=== PATIENT | female | born 2000 | race Caucasian/White ===

== ENCOUNTER 2023-05-24 22:59 | Emergency (ER) | payer BC, SELFPAY ==
[2023-05-24 23:07] VITALS: BP 133/80; PULSE 120; RESP 22; TEMP 36.9; O2SAT 100; BMI 27.4
--- NOTE | 2023-05-24 23:14 | ED.GENADULT ---
HPI - General Adult General Date Seen: 05/24/23 Chief complaint: Nausea/Vomiting Stated complaint: Body aches, vomiting Time Seen by Provider: 05/24/23 23:09 Source: patient and family Mode of arrival: ambulatory Limitations: no limitations History of Present Illness HPI narrative: Patient is a 22-year-old here with mom for evaluation of vomiting and diarrhea which started this morning. She says the diarrhea started 1st and then she has had several episodes of vomiting. Diffuse crampy abdominal pain, no bloody stools, no fevers that she is aware of. No urinary symptoms. Her dad is sick with vomiting as well, mom says that he is up at [place] and they have not figured out what is wrong with him. General health is good, no abdominal surgeries. Related Data Home Medications Medication Instructions Recorded Confirmed epinephrine 0.3 mg/0.3 mL 0.3 ml IM PRN anaphylaxis 05/24/23 05/24/23 injection, auto-injector Allergies Allergy/AdvReac Type Severity Reaction Status Date / Time amoxicillin Allergy Mild Rash Verified 05/24/23 23:09 Penicillins Allergy Mild Hives Verified 05/24/23 23:09 Review of Systems Status of ROS: Reports: 10 or more systems reviewed and unremarkable except as noted in History and below [facility] Medical History No significant past medical history Surgical History No significant past surgical history Social History Smoking Status: Never smoker Second hand tobacco smoke exposure: No How often do you have a drink containing alcohol: never AUDIT-C Alcohol total score: 0 Non-prescribed substance use: denies use Exam Narrative: Exam Narrative: Vital signs as noted above. In general, an alert, well-appearing patient. Head: Normocephalic, atraumatic. Eyes: Pupils are equal reactive. Extraocular movements are full. Conjunctivae are normal. ENT: Mucous membranes are moist. Throat is normal. Neck: Supple without lymphadenopathy. Heart: Regular rate and rhythm. No murmur or rub. Lungs: Clear bilaterally. No increased work of breathing, crackles or wheezes. Abdomen: Soft and nondistended. Bowel sounds present. Mild diffuse tenderness without rebound guarding or rigidity. Extremities: Well perfused. No edema. No calf tenderness. Pulses intact. Neurologic: Patient is alert and oriented to person and place. Speech is fluent. Face is symmetric. Moves all extremities equally. Affect: Normal. Skin: Warm and dry. Well perfused. Const: Vital Signs, click to edit/add: Vital Signs - 24 hr 05/24/23 23:07 Temperature 98.5 F Pulse Rate [Right Pulse Oximeter] 120 H Respiratory Rate 22 Blood Pressure [Ri ght Upper Arm] 133/80 Pulse Oximetry 100 Oxygen Delivery Me thod Room Air Documenting provider has reviewed patient's vital signs: yes Course Course ED Course: Viral swab is pending. Will place an IV give some fluids and Zofran, check electrolytes, UA, test. Diagnostic considerations include gastroenteritis, food-borne illness, rule out dehydration, low suspicion of surgical process such as appendicitis, ovarian pathology, obstruction given presentation and exam. Labs are notable for a potassium of 3, she was given 50 mEq of potassium bicarb. She had a L normal saline, Zofran, has not had any further vomiting, stomach feels somewhat better. No diarrhea while here. Urinalysis shows trace blood, 2-5 red cells, 2-5 white cells. test is negative. COVID influenza and RSV are negative as well. Discussed with patient and her mom that symptoms are most likely viral although she is significantly worsening, has severe abdominal pain, fevers, unusual rashes, bloody stools or other worsening symptoms she should be re-evaluated. Otherwise, would anticipate that the vomiting should resolve over the next day or so. Diarrhea may persist but she should be seen if she has diarrhea beyond 10 days. Clear liquids tomorrow, advance as able. Zofran if needed at home for nausea or vomiting. Hypokalemia likely from GI losses, expect that this will improve with resolution of symptoms but could be rechecked in clinic next week. Vital Signs Vital signs: Initial Vital Signs Temperature 98.5 F 05/24/23 23:07 Temperature Source Temporal Artery Scan 05/24/23 23:07 Pulse Rate 120 H 05/24/23 23:07 Respiratory Rate 22 05/24/23 23:07 Blood Pressure 133/80 05/24/23 23:07 Blood Pressure Mean 97 05/24/23 23:07 Blood Pressure Position Sitting 05/24/23 23:07 Pulse Oximetry 100 05/24/23 23:07 Oxygen Delivery Method Room Air 05/24/23 23:07 Vital Signs Temperature 98.5 F 05/24/23 23:07 Pulse Rate 120 H 05/24/23 23:07 Respiratory Rate 22 05/24/23 23:07 Blood Pressure 133/80 05/24/23 23:07 Pulse Oximetry 100 05/24/23 23:07 Oxygen Delivery Method Room Air 05/24/23 23:07 Temperature 98.5 F 05/24/23 23:07 Pulse Rate 120 H 05/24/23 23:07 Respiratory Rate 22 05/24/23 23:07 Blood Pressure 133/80 05/24/23 23:07 Pulse Oximetry 100 05/24/23 23:07 Oxygen Delivery Method Room Air 05/24/23 23:07 Medications Administered Medications: Generic Name Dose Route Start Last Admin Trade Name Freq PRN Reason Stop Dose Admin Potassium Bicarbonate 50 meq 05/25/23 00:00 05/25/23 00:02 Potassium Bicarb 25 Meq Effervescent Tab PO 05/25/23 00:01 50 meq ONCE ONE Administration Discontinued Medications Generic Name Dose Route Start Last Admin Trade Name Freq PRN Reason Stop Dose Admin Sodium Chloride 1,000 mls @ 1,000 mls/hr 05/24/23 23:15 05/25/23 00:02 0.9 % Sodium Chloride 1000 Ml IV 05/25/23 00:14 Infused .Q1H TERESE Infusion Ondansetron HCl 4 mg 05/24/23 23:13 05/24/23 23:20 Ondansetron 2 Mg/Ml Inj IVP 05/24/23 23:14 4 mg ONCE ONE Administration Medical Decision Making Lab Data Labs: Lab Results 05/24/23 05/24/23 05/24/23 Range/Units 23:08 23:13 23:20 Sodium 135 (135-149) mmol/L Potassium 3.0 L (3.6-5.1) mmol/L Chloride 103 (96-114) mmol/L Carbon Dioxide 22 (20-32) mmol/L Anion Gap 10 (7-15) mEq/L BUN 8 (5-24) mg/dL Creatinine 0.5 (0.5-1.5) mg/dL Estimated Creat Clear 181.05 Estimated GFR 138 ml/min Glucose 119 H (60-115) mg/dL Calcium 9.2 (8.4-10.6) mg/dL Urine Color Yellow (Yellow) Urine Appearance Clear (Clear) Urine pH 6.0 (5.0-8.5) Ur Specific [place] 1.015 (1.000-1.030) Urine Protein Negative (Negative) Urine Glucose (UA) Negative (Negative) Urine Ketones Negative (Negative) Urine Blood Trace-intact A (Negative) Urine Nitrite Negative (Negative) Urine Bilirubin Negative (Negative) Urine Urobilinogen 0.2 (0.2-1.0) Ur Leukocyte Esterase 1+ A (Negative) Urine RBC 2-5 A (0-2) Urine WBC 2-5 (0-5) Ur Squamous Epith Cells Few (None-Few) Urine Bacteria Few A (None) Urine HCG, Qual Negative (Negative) SARS-CoV-2 (PCR) Negative SARS-CoV-2 (Negative) Influenza Type A (PCR) Negative PCR FLU A (Negative) Influenza Type B (PCR) Negative PCR FLU B (Negative) RSV (PCR) Negative PCR RSV (Negative) Discharge Plan Discharge Clinical Impression: Nausea, vomiting and diarrhea Patient Disposition: Home w/ Parent or Adult Condition: Improved Instructions: Acute Nausea and Vomiting (DC), Acute Diarrhea (ED) Additional Instructions: Symptoms are likely viral and will gradually improve over the next 24 hours. Diarrhea may persist for up to a week, if you continue have diarrhea for more than 10 days you should be seen in your clinic. If at any time you have severe symptoms, new symptoms such as bloody stools, unusual rashes, high fevers, return to the emergency department for further evaluation. Zofran if needed for nausea/vomiting, I would recommend clear liquids tomorrow, advance diet as your stomach allows. Your potassium was somewhat low here which is likely related to losses from vomiting and diarrhea. This can be rechecked in clinic next week. Prescriptions: No Action epinephrine 0.3 mg/0.3 mL auto-injector 0.3 ml IM PRN Follow Up/Referrals: Giovany Bazzi MD [Staff Physician] - Stand Alone Forms: [employer] Info Instructions
[2023-05-24] MEDS: 0.9 % SODIUM CHLORIDE 1000 ml 1,000 ML IV (23:20)
[2023-05-24] MEDS: ONDANSETRON 2 MG/ML inj 4 MG IVP (23:20)
[2023-05-24 23:51] LABS: PCR FLU A Negative PCR FLU A (Negative); PCR FLU B Negative PCR FLU B (Negative); PCR RSV Negative PCR RSV (Negative); SARS PCR* Negative SARS-CoV-2 (Negative)
[2023-05-24 23:56] LABS: Chloride* 103 mmol/L (96-114); Sodium* 135 mmol/L (135-149)
[2023-05-24 23:59] LABS: Anion Gap 10 mEq/L (7-15); Carbon Dioxide* 22 mmol/L (20-32); Creatinine* 0.5 mg/dL (0.5-1.5); Est. Creatinine Clearance* 181.05; Estimated Glomerular Filt Rate 138 ml/min
[2023-05-25] LABS: Blood Urea Nitrogen* 8 mg/dL (5-24); Calcium* 9.2 mg/dL (8.4-10.6); Glucose* 119 mg/dL (60-115)
[2023-05-25] MEDS: POTASSIUM BICARB 25 MEQ EFFERVESCENT TAB 50 MEQ PO (00:02)
[2023-05-25 00:05] LABS: Appearance Urine Clear (Clear); Bilirubin Urine Negative (Negative); Blood Urine Trace-intact (Negative); Color Urine Yellow (Yellow); Glucose Urine Negative (Negative); Ketones Urine Negative (Negative); Leukocyte Esterase Urine 1+ (Negative); Nitrite Urine Negative (Negative); Protein Urine Negative (Negative); Specific Gravity Urine 1.015 (1.000-1.030); Ur HCG Qualitative* Negative (Negative); Urobilinogen Urine 0.2 (0.2-1.0)
[2023-05-25 00:23] LABS: Bacteria Urine Few; Squamous Epithelial Cell Urine Few (None-Few)
[2023-05-25 00:30] VITALS: BP 125/74; PULSE 98; RESP 22; TEMP 36.9; O2SAT 100
[2023-05-25 00:40] VITALS: BP 125/74; PULSE 98; RESP 22; TEMP 36.9
== END 2023-05-25 00:41 | disposition home or self-care (01) ==
PROVIDERS: Emergency Provider Emergency Medicine; PCP Family Medicine
DX: R11.2 Nausea with vomiting, unspecified (principal); R19.7 Diarrhea, unspecified
CPT/HCPCS: 36415; 80048; 81001; 81025; 87086; 87631; 96374; 99283; 99284; A9270; J2405; J7030

== ENCOUNTER 2023-07-08 08:31 | Outpatient (CLI) | payer MEDICAID, SELFPAY ==
--- NOTE | 2023-07-08 08:45 | US_ITS ---
Patient: RUY JACKSON Facility:?[facility] Patient ID:?[id number] Site Patient ID:?[id number]. Site :?[id number] Study:?US-OB Pelvis OB TV-07/08/2023 9:41:58 AM Ordering Physician:ED TURCIOS Final Report: INDICATION: Dating and viability. LMP 05/09/2023. COMPARISON: None. TECHNIQUE: Real-time pike-scale imaging of the pelvis was performed. FINDINGS: Sonographic imaging demonstrates a single living intrauterine gestation. The embryo has a regular cardiac rate measuring 186 beats per minute. The embryo`s crown-rump length measures 2.8 cm which corresponds to a gestational age of 9 weeks 4 days with sonographic due date 02/06/2024. There is a normal-appearing yolk sac. The placenta has not yet developed. There is a 2.1 x 0.2 x 2.7 cm subchorionic hemorrhage inferior to the gestational sac. The right ovary measures 3.7 x 2.4 x 2.9 cm and the left ovary measures 2.1 x 1.3 x 1.3 cm. Corpus luteal cyst in the right ovary. No free fluid in the pelvic cul-de-sac. IMPRESSION: 1. Single living intrauterine gestation corresponding to a gestational age of 9 weeks 4 days with sonographic due date 02/06/2024. 2. The clinical gestational age by LMP is 9 weeks 0 days. 3. Small subchorionic hemorrhage. Dictated by Sondra Hassan MD @ 07/09/2023 3:03:33 AM Signed by:?Sondra Hassan MD @07/09/2023 3:03:33 AM (Electronic Signature)
== END 2023-07-08 08:32 | disposition home or self-care (01) ==
LOC: US 08:33
PROVIDERS: PCP Family Medicine; Visit Provider Physician Assistant
DX: Z34.91 Encounter for supervision of normal pregnancy, unspecified, first trimester (principal); O20.9 Hemorrhage in early pregnancy, unspecified; Z3A.09 9 weeks gestation of pregnancy
CPT/HCPCS: 76817; 86703; 86706; 86803; 86850; 86900; 86901; 87086; 87340; 87491; 87591

== ENCOUNTER 2023-07-08 09:49 | Outpatient (CLI) | payer MEDICAID, SELFPAY ==
[2023-07-08 15:11] LABS: Chlamydia DNA Amplified* NOT DETECTED (No Detected); GC DNA Amplified* NOT DETECTED (No Detected)
== END 2023-07-08 09:50 | disposition home or self-care (01) ==
PROVIDERS: PCP Family Medicine; Visit Provider Obstetrics & Gynecology
DX: Z34.01 Encounter for supervision of normal first pregnancy, first trimester (principal)
CPT/HCPCS: 86592; 86703; 86704; 86706; 86762; 86787; 86803; 86850; 86900; 86901; 87086; 87340; 87491; 87591

== ENCOUNTER 2023-07-22 23:20 | Emergency (ER) | payer MEDICAID, SELFPAY ==
[2023-07-22 23:35] VITALS: BP 123/85; PULSE 101; RESP 20; TEMP 36.5; O2SAT 100; BMI 26.6
--- NOTE | 2023-07-23 00:33 | ED.NAVMDI ---
HPI - Nausea/Vomiting/Diarrhea General Date Seen: 07/23/23 Chief complaint: Nausea/Vomiting Stated complaint: Nausea, vomiting Time Seen by Provider: 07/23/23 00:10 Source: patient Mode of arrival: ambulatory Limitations: no limitations History of Present Illness HPI Narrative: Patient is a currently 11 weeks 22-year-old female presenting to the emergency department for nausea/vomiting and epigastric pain. She states today around 19:30 she started having severe nausea and vomiting. Since then she states she has vomited several times and has not been able to eat or drink anything due to this. Last time she was able to keep any food or liquids down was around noon for lunch. She states she has been his knee issues with nausea for few weeks but has never been this bad. Does not take anything for nausea. States the abdominal pain started shortly after she started vomiting and is just in the upper abdominal region. Denies chest pain, shortness of breath, lightheadedness, dizziness, , weakness, numbness. States when she is vomiting she becomes sweaty and then she feels cold afterwards. Does not aware of any sick contacts. Has had no complications with the other than was told she has a very small subchorionic hemorrhage. No other concerns at this time. Related Data Home Medications Medication Instructions Recorded Confirmed epinephrine 0.3 mg/0.3 mL 0.3 ml IM PRN anaphylaxis 05/24/23 05/24/23 injection, auto-injector docosahexaenoic acid 200 mg mg PO 07/08/23 07/08/23 capsule ( DHA) Previous Rx's Medication Instructions Recorded ondansetron 4 mg disintegrating 4 mg PO Q6H #20 tabs 07/23/23 tablet Allergies Allergy/AdvReac Type Severity Reaction Status Date / Time Peanut (Legumes) Allergy Severe Swelling Verified 07/22/23 23:38 amoxicillin Allergy Intermediate Hives Verified 07/22/23 23:38 Penicillins Allergy Intermediate Hives Verified 07/22/23 23:38 penicillin V Allergy Mild Rash Verified 07/22/23 23:38 Review of Systems Status of ROS: Reports: 10 or more systems reviewed and unremarkable except as noted in History and below [facility] Surgical History History of tonsillectomy and adenoidectomy ?Z90.89 - Acquired absence of other organs (ICD-10) Family History Father High cholesterol High blood pressure Social History What is your current living situation?: I presently have a place to live Problems where you live: no known problems In the past 12 months, utilities in danger of being shut off: no In past 12 months, lack of transportation kept you from medical appts, meetings, work, or getting things needed for daily living: no In the past 12 mos, have been you worried that your food would run out before you had money to buy more?: never true In the past 12 mos, the food you bought just didn't last and you didn't have money to buy more?: never true Smoking Status: Never smoker Second hand tobacco smoke exposure: No How often do you have a drink containing alcohol: never AUDIT-C Alcohol total score: 0 Non-prescribed substance use: denies use How often does anyone, including family, friends and others, physically hurt you: never How often does anyone, including family, friends and others, insult or talk down to you: never How often does anyone, including family, friends and others, threaten you with harm: never How often does anyone, including family, friends and others, scream or curse at you: never Little interest or pleasure in doing things: not at all Feeling down, depressed, or hopeless: not at all Exam Narrative: Exam Narrative: Const: Well-nourished, Well-developed, in mild distress Eyes: PERRL, no conjunctival injection, and symmetrical lids HENT: Atraumatic external nose and ears. Moist mucous membranes. Neck: Symmetric, trachea midline, No thyromegaly. CVS: RRR, No murmurs or gallops. Peripheral pulses 2+ and equal in all extremities RESP: Unlabored respiratory effort. Clear to auscultation bilaterally. GI: Mild epigastric tenderness, Nondistended, No rebound or guarding. MSK:Extremities w/o deformity, Normal Active ROM Skin: Warm, Dry. No rashes or lesions. Neuro: Normal Muscle tone, No focal neurological deficits. Psych: Awake, Alert, & Oriented x3. Appropriate mood and affect. Const: Vital Signs, click to edit/add: Vital Signs - 24 hr 07/22/23 23:35 Temperature 97.7 F Pulse Rate [Pulse Oximeter] 101 H Respiratory Rate 20 Blood Pressure [Ri ght Upper Arm] 123/85 Pulse Oximetry 100 Oxygen Delivery Me thod Room Air Course Vital Signs Vital signs: Initial Vital Signs Temperature 97.7 F 07/22/23 23:35 Temperature Source Temporal Artery Scan 07/22/23 23:35 Pulse Rate 101 H 07/22/23 23:35 Pulse Rhythm Regular 07/22/23 23:35 Pulse Strength 3+ Normal 07/22/23 23:35 Respiratory Rate 20 07/22/23 23:35 Blood Pressure 123/85 07/22/23 23:35 Blood Pressure Mean 97 07/22/23 23:35 Pulse Oximetry 100 07/22/23 23:35 Oxygen Delivery Method Room Air 07/22/23 23:35 Vital Signs Temperature 97.7 F 07/22/23 23:35 Pulse Rate 101 H 07/22/23 23:35 Respiratory Rate 20 07/22/23 23:35 Blood Pressure 123/85 07/22/23 23:35 Pulse Oximetry 100 07/22/23 23:35 Oxygen Delivery Method Room Air 07/22/23 23:35 Temperature 97.7 F 07/22/23 23:35 Pulse Rate 101 H 07/22/23 23:35 Respiratory Rate 20 07/22/23 23:35 Blood Pressure 123/85 07/22/23 23:35 Pulse Oximetry 100 07/22/23 23:35 Oxygen Delivery Method Room Air 07/22/23 23:35 Medications Administered Medications: Discontinued Medications Generic Name Dose Route Start Last Admin Trade Name Freq PRN Reason Stop Dose Admin Lactated Ringer's 1,000 mls @ 1,000 mls/hr 07/23/23 00:31 07/23/23 01:06 Lactated Ringers 1000 Ml IV 07/23/23 01:30 1,000 mls/hr .Q1H ONE Administration Ondansetron HCl 4 mg 07/23/23 00:31 07/23/23 01:07 Ondansetron 2 Mg/Ml Inj IVP 07/23/23 00:32 4 mg ONCE ONE Administration MDM - Nausea/Vomiting/Diarrhea MDM Narrative Medical decision making narrative: Patient is a 22-year-old female who is 11 weeks and this is her 1st presenting to emergency department for nausea/vomiting and upper abdominal pain. Considering the time frame of the nausea vomiting seems to be hyperemesis gravidarum. The abdominal pain is epigastric in started right after vomiting is likely secondary to the vomiting. Will check a lipase though to look for signs of pancreatitis. Will also order a CBC, CMP, COVID/flu/RSV, magnesium, urinalysis, quantitative hCG. Patient given Zofran for nausea and a L of fluids. Patient's lab work returned with a CBC showed a white count of 14.4. She is showing other signs of infection this is likely secondary to the patient's vomiting. She is also which can increase the white blood cell count. CMP and magnesium showed no concerning findings. Lipase within normal limits and no signs of pancreatitis. Urinalysis shows 4+ ketones which is sign of dehydration from her vomiting. She has order being given a L of fluid and no other signs of abnormalities. Go chest flu/RSV is negative. She is feeling better after the Zofran. At this point she is doing will it can be safely discharged who appeared. She is agreeable to this plan. Lab Data Labs: Lab Results 07/23/23 07/23/23 07/23/23 Range/Units 01:08 01:25 01:50 WBC 14.40 H (4.50-11.00) K/uL RBC 4.76 (4.00-5.20) m/uL Hgb 12.8 (12.0-16.0) gm/dL Hct 38.3 (33.0-51.0) % MCV 81 (80-100) fL MCH 27 (26-34) pg MCHC 33 (32-36) gm/dL RDW Coeff of Chela 13.6 (11.5-15.5) % Plt Count 189 (140-440) K/uL Neut % (Auto) 90.7 H (42.0-72.0) % Lymph % (Auto) 5.1 L (20-44) % Dundy % (Auto) 3.5 (0.0-11.0) % Eos % (Auto) 0.3 (0.0-7.0) % Baso % (Auto) 0.1 (0.0-3.0) % Neut # (Auto) 13.10 H (1.7-7.0) K/uL Lymph # (Auto) 0.70 L (0.90-2.90) K/uL Dundy # (Auto) 0.50 (0.00-0.90) K/UL Eos # (Auto) 0.00 (0.00-0.50) K/uL Baso # (Auto) 0.00 (0.00-0.30) K/uL Abs Immat Gran (auto) 0.00 (0.00-0.30) K/uL Imm/Tot Granulo (auto) 0.3 % Sodium 135 (135-149) mmol/L Potassium 3.7 (3.6-5.1) mmol/L Chloride 105 (96-114) mmol/L Carbon Dioxide 24 (20-32) mmol/L Anion Gap 6 L (7-15) mEq/L BUN 9 (5-24) mg/dL Creatinine 0.3 L (0.5-1.5) mg/dL Estimated Creat Clear 301.75 Estimated GFR 156 ml/min Glucose 109 (60-115) mg/dL Calcium 9.2 (8.4-10.6) mg/dL Magnesium 1.7 (1.5-2.6) mg/dL Total Bilirubin 0.7 (0.1-1.5) mg/dL AST 25 (12-35) U/L ALT 17 (4-35) U/L Alkaline Phosphatase 49 (40-150) U/L Total Protein 7.4 (6.0-8.3) g/dL Albumin 4.2 (3.3-5.0) g/dL Lipase 68 (23-300) U/L Urine Color Yellow (Yellow) Urine Appearance Clear (Clear) Urine pH 6.0 (5.0-8.5) Ur Specific [place] >= 1.030 (1.000-1.030) Urine Protein Negative (Negative) Urine Glucose (UA) Negative (Negative) Urine Ketones 4+ A (Negative) Urine Blood Negative (Negative) Urine Nitrite Negative (Negative) Urine Bilirubin Negative (Negative) Urine Urobilinogen 0.2 (0.2-1.0) Ur Leukocyte Esterase Negative (Negative) Urine RBC 0-2 (0-2) Urine WBC 0-2 (0-5) Ur Squamous Epith Cells Few (None-Few) Urine Bacteria Few A (None) SARS-CoV-2 (PCR) Negative SARS-CoV-2 (Negative) Influenza Type A (PCR) Negative PCR FLU A (Negative) Influenza Type B (PCR) Negative PCR FLU B (Negative) RSV (PCR) Negative PCR RSV (Negative) Discharge Plan Discharge Clinical Impression: Nausea Patient Disposition: Home, Self-Care Condition: Stable Instructions: Hyperemesis Gravidarum (ED) Additional Instructions: Use the Zofran as needed for nausea. Make sure to follow-up with the [facility] to speak to them about your symptoms. They may have you started on different nausea medicine. Return to emergency department for new or worsening symptoms. Prescriptions: New ondansetron 4 mg tablet,disintegrating 4 mg PO Q6H Qty: 20 0RF No Action DHA 200 mg capsule PO epinephrine 0.3 mg/0.3 mL auto-injector 0.3 ml IM PRN Follow Up/Referrals: Kaitlin Ashton MD [Primary Care Provider] - Stand Alone Forms: [employer] Info Instructions
[2023-07-23] MEDS: LACTATED RINGERS 1000 ML 1,000 ML IV (01:06)
[2023-07-23] MEDS: ONDANSETRON 2 MG/ML inj 4 MG IVP (01:07)
[2023-07-23 01:30] LABS: Basophils Percent Auto 0.1 % (0.0-3.0); Eosinophils Percent Auto 0.3 % (0.0-7.0); Hematocrit 38.3 % (33.0-51.0); Hemoglobin* 12.8 gm/dL (12.0-16.0); Immature Granulocytes Pct Auto 0.3 %; Lymphocytes Percent Auto 5.1 % (20-44); Mean Corpuscular HGB Conc 33 gm/dL (32-36); Mean Corpuscular Hemoglobin 27 pg (26-34); Mean Corpuscular Volume 81 fL (80-100); Monocytes Percent Auto 3.5 % (0.0-11.0); Neutrophils Percent Auto 90.7 % (42.0-72.0); Platelet Count* 189 K/uL (140-440); RDW Coefficient of Variation % 13.6 % (11.5-15.5); Red Blood Count 4.76 m/uL (4.00-5.20)
[2023-07-23 01:34] LABS: Slide Review Reflex No
[2023-07-23 01:43] LABS: Albumin* 4.2 g/dL (3.3-5.0); Chloride* 105 mmol/L (96-114); Sodium* 135 mmol/L (135-149)
[2023-07-23 01:44] LABS: Potassium* 3.7 mmol/L (3.6-5.1)
[2023-07-23 01:46] LABS: Alkaline Phosphatase* 49 U/L (40-150); Anion Gap 6 mEq/L (7-15); Aspartate Amino Transferase* 25 U/L (12-35); Bilirubin Total* 0.7 mg/dL (0.1-1.5); Blood Urea Nitrogen* 9 mg/dL (5-24); Carbon Dioxide* 24 mmol/L (20-32); Creatinine* 0.3 mg/dL (0.5-1.5); Est. Creatinine Clearance* 301.75; Estimated Glomerular Filt Rate 156 ml/min; Glucose* 109 mg/dL (60-115); Lipase* 68 U/L (23-300); Total Protein* 7.4 g/dL (6.0-8.3)
[2023-07-23 01:47] LABS: Alanine Aminotransferase* 17 U/L (4-35); Calcium* 9.2 mg/dL (8.4-10.6); Magnesium* 1.7 mg/dL (1.5-2.6)
[2023-07-23 01:57] LABS: Appearance Urine Clear (Clear); Bilirubin Urine Negative (Negative); Blood Urine Negative (Negative); Color Urine Yellow (Yellow); Glucose Urine Negative (Negative); Ketones Urine 4+ (Negative); Leukocyte Esterase Urine Negative (Negative); Nitrite Urine Negative (Negative); Protein Urine Negative (Negative); Specific Gravity Urine >= 1.030 (1.000-1.030); Urobilinogen Urine 0.2 (0.2-1.0)
[2023-07-23 02:01] LABS: RBC Urine 0-2 (0-2); Squamous Epithelial Cell Urine Few (None-Few); WBC Urine 0-2 (0-5)
[2023-07-23 02:02] LABS: Bacteria Urine Few
[2023-07-23 02:07] LABS: PCR FLU A Negative PCR FLU A (Negative); PCR FLU B Negative PCR FLU B (Negative); PCR RSV Negative PCR RSV (Negative); SARS PCR* Negative SARS-CoV-2 (Negative)
== END 2023-07-23 02:41 | disposition home or self-care (01) ==
PROVIDERS: Emergency Provider Student in an Organized Health Care Education/Training Program; PCP Family Medicine
DX: N39.0 Urinary tract infection, site not specified (principal); Z22.359 Carrier of Enterobacterales, unspecified
CPT/HCPCS: 36415; 80053; 81001; 83690; 83735; 84702; 85025; 87086; 87186; 87631; 96374; 99283; 99284; J2405; J7120

== ENCOUNTER 2023-09-24 07:11 | Outpatient (CLI) | payer MEDICAID, SELFPAY ==
--- NOTE | 2023-09-24 07:15 | CRLHL7_ITS ---
For Patients: As a result of the Century Cures Act, medical imaging exams and procedure reports are released immediately into your electronic medical record. You may view this report before your referring provider. If you have questions, please contact your health care provider. OBSTETRICAL ULTRASOUND ??? ANATOMY SURVEY INDICATION: Supervision of normal first . anatomy scan. LMP: 05/06/2023. YAMILET by LMP: 02/10/2024. GA: 20w 1d. COMPARISON: 07/08/2023. TECHNIQUE: Transabdominal pelvic ultrasound. FINDINGS: position: Vertex. Cervix: Visualized. Length of closed cervix: 3.6 cm. Placenta position: Posterior. Placenta tip to internal os: 7.1 cm. Umbilical cord: 3-vessel cord. Placental insertion: Central. Amniotic fluid: 3.4 cm SDP ANATOMY SURVEY: Observed Structures Cerebellum: 2.0 cm, 20 weeks 3 days Cisterna magna: 5.1 mm Nuchal fold: 4.6 mm Lateral ventricle: 4.7 mm CSP Midline falx Choroid plexus Spine Stomach Abdominal cord insert Urinary bladder Kidneys Diaphragm Nose/lips Orbital view Profile Upper extremities Lower extremities Hands Feet 4-chamber heart LVOT RVOT 3VV 3VTV Biometry: BPD: 4.4 cm, 19 weeks 3 days, 21% HC: 17.5 cm, 20 weeks 0 days, 37% AC: 15.7 cm, 20 weeks 6 days, 69% FL: 3.5 cm, 21 weeks 1 days, 76% FL/AC: 22.4% HC/AC ratio: 1.11 heart rate: 142 bpm age by this ultrasound: 20 weeks 3 days YAMILET by this ultrasound: 02/08/2024 Estimated weight: 380.28 grams (13 ounces) Percentile by YAMILET: 82% IMPRESSION: 1. Measurements are consistent with dates. 2. Normal anatomic survey. Filiberto Longoria M.D. Body/Diagnostic Radiologist [email or web address] SP/Dictated by: Filiberto Longoria MD @ 09/24/2023 2:53:00 PM (Electronically Signed)
== END 2023-09-24 07:12 | disposition home or self-care (01) ==
LOC: US 07:12
PROVIDERS: Visit Provider Obstetrics & Gynecology
DX: Z34.92 Encounter for supervision of normal pregnancy, unspecified, second trimester (principal); Z3A.20 20 weeks gestation of pregnancy
CPT/HCPCS: 76805

== ENCOUNTER 2023-10-06 12:52 | Emergency (ER) | payer MEDICAID, SELFPAY ==
[2023-10-06] VITALS (13 sets, daily range): BP systolic 124–137; BP diastolic 71–83; PULSE 68–108; RESP 20; TEMP 36.6; O2SAT 97–100; BMI 25.8
--- NOTE | 2023-10-06 13:00 | ED_ITS ---
HPI - General Adult General Time Seen by Provider: 13:00 Date Seen: 10/06/23 Chief complaint: Allergic Reaction Stated complaint: Allergic reaction peanuts Time Seen by Provider: 10/06/23 12:54 Source: patient and RN notes reviewed Mode of arrival: ambulatory Limitations: no limitations History of Present Illness HPI narrative: Patient was seen on arrival and did follow her in to her patient care room. She ingested peanuts about an hour and half ago, this was inadvertent food cross contamination. She took oral Benadryl immediately. She is about 22 weeks pregn ant, did not want to take her EpiPen. She felt facial itchiness, lip and mouth itchiness, breathing feels heavy, feels nauseated but has not thrown up. She did not ever noted a rash. She is not sure the last time she ingested peanuts or what her last reaction was as it has been so long. Related Data Home Medications ?Medication ?Instructions ?Recorded ?Confirmed epinephrine 0.3 mg/0.3 mL 0.3 ml IM PRN anaphylaxis 05/24/23 09/24/23 injection, auto-injector docosahexaenoic acid 200 mg mg PO 07/08/23 09/24/23 capsule ( DHA) Previous Rx's ?Medication ?Instructions ?Recorded famotidine 10 mg tablet (Acid 10 mg PO BID #60 tabs 07/25/[address] (famotidine)) prednisone 20 mg tablet 20 mg PO BID #6 tabs 10/06/23 Allergies Allergy/AdvReac Type Severity Reaction Status Date / Time Peanut (Legumes) Allergy Severe Swelling Verified 09/24/23 07:30 amoxicillin Allergy Intermediate Hives Verified 09/24/23 07:30 Penicillins Allergy Intermediate Hives Verified 09/24/23 07:30 penicillin V Allergy Mild Rash Verified 09/24/23 07:30 Review of Systems Status of ROS: Reports: 6 or more systems reviewed and unremarkable except as noted in History and below [facility] Surgical History History of tonsillectomy and adenoidectomy ?Z90.89 - Acquired absence of other organs (ICD-10) Family History Father High cholesterol High blood pressure Social History What is your current living situation?: I presently have a place to live Problems where you live: no known problems In the past 12 months, utilities in danger of being shut off: no In past 12 months, lack of transportation kept you from medical appts, meetings, work, or getting things needed for daily living: no In the past 12 mos, have been you worried that your food would run out before you had money to buy more?: never true In the past 12 mos, the food you bought just didn't last and you didn't have money to buy more?: never true Smoking Status: Never smoker Do you use any of these nicotine containing products: None Second hand tobacco smoke exposure: No How often do you have a drink containing alcohol: never AUDIT-C Alcohol total score: 0 Non-prescribed substance use: denies use How often does anyone, including family, friends and others, physically hurt you : never How often does anyone, including family, friends and others, insult or talk down to you: never How often does anyone, including family, friends and others, threaten you with harm: never How often does anyone, including family, friends and others, scream or curse at you: never Little interest or pleasure in doing things: not at all Feeling down, depressed, or hopeless: not at all service: No Exam Const: Vital Signs, click to edit/add: Vital Signs - 24 hr 10/06/23 13:00 10/06/23 13:27 10/06/23 13:30 Temperature 97.9 F Pulse Rate 70 81 Pulse Rate [Pulse Oximeter] 79 Respiratory Rate 20 Blood Pressure Blood Pressure [Le ft Upper Arm] 137/83 Pulse Oximetry 100 98 98 Oxygen Delivery Me thod Room Air 10/06/23 14:00 10/06/23 14:09 10/06/23 14:30 Temperature Pulse Rate 68 76 Pulse Rate [Pulse Oximeter] Respiratory Rate Blood Pressure Blood Pressure [Le ft Upper Arm] Pulse Oximetry 97 98 99 Oxygen Delivery Me thod 10/06/23 15:00 10/06/23 15:30 10/06/23 16:01 Temperature Pulse Rate 78 69 75 Pulse Rate [Pulse Oximeter] Respiratory Rate Blood Pressure Blood Pressure [Le ft Upper Arm] Pulse Oximetry 97 98 99 Oxygen Delivery Me thod 10/06/23 16:11 10/06/23 16:31 Temperature Pulse Rate 75 108 H Pulse Rate [Pulse Oximeter] Respiratory Rate Blood Pressure 124/71 Blood Pressure [Le ft Upper Arm] Pulse Oximetry 100 99 Oxygen Delivery Me thod This 23-year-old female is alert, interactive, ambulatory back into her room with normal gait. Her speech is normal, no hoarseness, able speak in complete sentences. Face is normal, no rash, no lip swelling. Sclera clear, conjugate gaze. Oropharynx with normal mucosa, no exudates, no swelling, tongue looks normal, uvula and posterior pharynx looks normal, she has a good oral airway. Neck is supple, no adenopathy. Lungs are clear, good air entry, no wheezing or crackles, good breath sounds, no tachypnea. CV regular rate and rhythm, no murmur, normal S1-S2, no S3-S4. Abdomen is soft, nontender, gravid uterus but no tenderness. No other organomegaly noted. Skin visualized without any rash or hives. Documenting provider has reviewed patient's vital signs: yes Course Course ED Course: This 23-year-old female with peanut allergy ingested a peanut about an hour and half ago. She is still at risk for anaphylaxis. Reviewed with her the medications we typically use, agree at this time that she does not necessarily need epinephrine but should we need to give it we will do so despite . I have reassured her that I will talk to Obstetrics about the medicines we typically use and make sure that they are in agreement, patient appreciates this. Reevaluation(s) Time of Reevaluation #1: 14:53 Reevaluation #1: Recheck done patient. She remains hemodynamically stable but states she still has her symptoms. She is not any worse. She is alert, interactive. Face is atraumatic, no facial, no lip common oral pharyngeal swelling. Speech is normal, no hoarseness, no cough. No rash. She has had no vomiting. Discuss that we certainly could give her epinephrine, did discuss this. She and I have decided to continue our course of observation given that there are no physical concerning changes. She is here under medical management, is aware to let us know if there are any changes. She still needs to continue to be monitored anyway. Time of Reevaluation #2: 16:13 Reevaluation #2: Patient just reported to nursing staff that she is having pelvic pain, cramping, low back pain that started about an hour ago but she just told nursing staff now. Will contact OB to evaluate this. Time of Reevaluation #3: 17:17 Reevaluation #3: Patient his feeling better now, has no symptoms. Ob was down, she states that baby looked fine, she is not having any further complaints either. Plan will be to discharge to home. We have discussed should she have any rebound allergic symptoms, it is imperative for her to take her EpiPen if it is needed and call 911. Consultations Consultation #1: Did speak with Dr. Delgadillo, reviewed my plan for oral prednisone, IV Benadryl, IV Pepcid and oral Zyrtec. Will likely have the patient take 3 more days of prednisone if she is stable to discharge. Right now she looks quite well but do want to give her further medicines as she is feeling symptoms that are concerning for development of anaphylaxis. We will stab lotion IV and have her on monitoring while here. Time: 13:03 Vital Signs Vital signs: Initial Vital Signs Temperature 97.9 F 10/06/23 13:00 Temperature Source Temporal Artery Scan 10/06/23 13:00 Pulse Rate 79 10/06/23 13:00 Respiratory Rate 20 10/06/23 13:00 Blood Pressure 137/83 10/06/23 13:00 Blood Pressure Mean 101 10/06/23 13:00 Blood Pressure Position Supine 10/06/23 13:00 Pulse Oximetry 100 10/06/23 13:00 Oxygen Delivery Method Room Air 10/06/23 13:00 Vital Signs Temperature 97.9 F 10/06/23 13:00 Pulse Rate 79 10/06/23 13:00 Respiratory Rate 20 10/06/23 13:00 Blood Pressure 137/83 10/06/23 13:00 Pulse Oximetry 100 10/06/23 13:00 Oxygen Delivery Method Room Air 10/06/23 13:00 Temperature 97.9 F 10/06/23 13:00 Pulse Rate 108 H 10/06/23 16:31 Respiratory Rate 20 10/06/23 13:00 Blood Pressure 124/71 10/06/23 16:11 Pulse Oximetry 99 10/06/23 16:31 Oxygen Delivery Method Room Air 10/06/23 13:00 Medications Administered Medications: Discontinued Medications Generic Name Dose Route Start Last Admin Trade Name Paolo PRN Reason Stop Dose Admin Cetirizine HCl 10 mg 10/06/23 13:06 10/06/23 13:25 Cetirizine Hcl 10 Mg Tablet PO 10/06/23 13:07 10 mg ONCE ONE Administration Famotidine 20 mg 10/06/23 13:03 10/06/23 13:24 Famotidine 10 Mg/Ml Inj IVP 10/06/23 13:04 20 mg ONCE ONE Administration Diphenhydramine HCl 25 mg/ 100.5 mls @ 402 mls/hr 10/06/23 13:03 10/06/23 13:40 Sodium Chloride IVPB 10/06/23 13:04 Infused ONCE ONE Infusion Prednisone 40 mg 10/06/23 13:03 10/06/23 13:25 Prednisone 10 Mg Tablet PO 10/06/23 13:04 40 mg ONCE ONE Administration Discharge Plan Discharge Clinical Impression: Allergic reaction Patient Disposition: Home, Self-Care Condition: Stable Instructions: General Allergic Reaction (ED), Peanut Allergy (ED) Additional Instructions: Continue with prednisone as prescribed, take with food. Next dose due tomorrow. Do recommend taking Zyrtec 10 mg daily for the next 3 days. Can use Benadryl as needed for bottle directions. If you have any evidence of rebound allergic r eaction, do recommend emergent re-evaluation, if significant symptoms you should take your EpiPen and call 911. Activity Level: Activity as Tolerated Discharge Diet: Regular Prescriptions: New prednisone 20 mg tablet 20 mg PO BID Qty: 6 0RF No Action famotidine [Acid Maintenance Of Way Superintendent (famotidine)] 10 mg tablet 10 mg PO BID Qty: 60 3RF DHA 200 mg capsule PO epinephrine 0.3 mg/0.3 mL auto-injector 0.3 ml IM PRN Follow Up/Referrals: Provider,Not a Local [Primary Care Provider] - Stand Alone Forms: [facility] Info Instructions
[2023-10-06] MEDS: diphenhydrAMINE 25 MG in 0.9 % SODIUM CHLORIDE 100 ml 100 ML 402 MG IVPB (13:23)
[2023-10-06] MEDS: FAMOTIDINE 10 MG/ML inj 20 MG IVP (13:24)
[2023-10-06] MEDS: CETIRIZINE HCL 10 MG TABLET PO (13:25)
[2023-10-06] MEDS: predniSONE 10 MG TABLET 40 MG PO (13:25)
== END 2023-10-06 17:34 | disposition home or self-care (01) ==
PROVIDERS: Emergency Provider Family Medicine
DX: R11.0 Nausea (principal); Z91.010 Allergy to peanuts
CPT/HCPCS: 94761; 96365; 96375; 99283; 99284; A9270; J1200; J7512; S0028

== ENCOUNTER 2023-10-24 16:01 | Outpatient (CLI) | payer MEDICAID, SELFPAY ==
[2023-10-24 16:21] VITALS: BP 123/71; PULSE 79; TEMP 36.8; O2SAT 98
--- NOTE | 2023-10-24 17:18 | PC.OBNST ---
NST Note NST Note Start: 10/24/23 16:06 Freq: ONCE Status: Active Protocol: Document 10/24/23 17:15 JOSE (Rec: 10/24/23 17:17 JOSE [id number]) NST Note 1 Para (# of births) 0 EDC 02/10/24 Gestational Age In Weeks & Days 24 Weeks & 3 Days Patient Presented with Complaint(s) of Pain Other Complaints Patient fell at 0900, developed constant LLQ pain at 1400 that she rates at 3/10. She also reported low back pain and upper abdominal cramping that has since resolved. Reactive Yes Appropriate for Gestational Age Yes PAT Beard, RN Date 10/24/23 Reactive Yes Appropriate for Gestational Age Yes PAT Bates RNC Date 10/24/23 OB NST charge Yes Complete NST Note via Write Note Yes The provider's electronic signature indicates the NST is reactive/appropriate for gestational age. *Note to provider: If an addendum is required, open the patient's chart and click on the note under the Nurse/Allied Health tab.
== END 2023-10-24 17:13 | disposition home or self-care (01) ==
LOC: OB OUT 16:02 → OB 16:03
PROVIDERS: Visit Provider Obstetrics & Gynecology
DX: O26.892 Other specified pregnancy related conditions, second trimester (principal); S29.9XXA Unspecified injury of thorax, initial encounter; W19.XXXA Unspecified fall, initial encounter
CPT/HCPCS: 59025; G0463

== ENCOUNTER 2023-11-03 12:56 | Outpatient (CLI) | payer MEDICAID, SELFPAY ==
[2023-11-03] VITALS (38 sets, daily range): BP systolic 113–119; BP diastolic 62–73; PULSE 66–100; RESP 16–18; TEMP 36.8–37.1; O2SAT 96–99
[2023-11-03 14:12] LABS: Fetal Fibronectin* Negative (Negative)
[2023-11-03] MEDS: NIFEdipine 10 MG CAPSULE PO (14:36)
--- NOTE | 2023-11-03 17:45 | PC.OBNST ---
NST Note NST Note Start: 11/03/23 13:05 Freq: ONCE Status: Active Protocol: Document 11/03/23 17:43 LANNY (Rec: 11/03/23 17:45 Stanley [id number]) NST Note 1 Para (# of births) 0 EDC 02/10/24 Gestational Age In Weeks & Days 25 Weeks & 6 Days Patient Presented with Complaint(s) of Contractions/cramping Reactive Yes Appropriate for Gestational Age Yes RN Claudia Fu RN Date 11/03/23 Reactive Yes Appropriate for Gestational Age Yes PAT Sylvester RN Date 11/03/23 OB NST charge Yes Complete NST Note via Write Note Yes The provider's electronic signature indicates the NST is reactive/appropriate for gestational age. *Note to provider: If an addendum is required, open the patient's chart and click on the note under the Nurse/Allied Health tab.
== END 2023-11-03 16:08 | disposition home or self-care (01) ==
LOC: OB OUT 12:56 → OB 13:03
PROVIDERS: Orthopaedic Surgery; Visit Provider Obstetrics & Gynecology
DX: O47.02 False labor before 37 completed weeks of gestation, second trimester (principal); Z3A.25 25 weeks gestation of pregnancy
CPT/HCPCS: 59025; 84112; G0463; A9270

== ENCOUNTER 2023-11-17 09:01 | Outpatient (CLI) | payer MEDICAID, SELFPAY | END 2023-11-17 09:02 | disposition home or self-care (01) | LOC: NFLDREF 11-19 06:45 | PROVIDERS: Visit Provider Obstetrics & Gynecology | DX: Z34.02 Encounter for supervision of normal first pregnancy, second trimester (principal) | CPT/HCPCS: 86592 ==

== ENCOUNTER 2023-11-21 10:25 | Outpatient (CLI) | payer MEDICAID, SELFPAY ==
[2023-11-21 10:47] VITALS: BP 128/79; PULSE 88; RESP 16; TEMP 37.1
[2023-11-21] MEDS: LACTATED RINGERS 1000 ML 1,000 ML 500 ML IV (11:25)
[2023-11-21 11:30] LABS: Amnisure Rom* Negative
[2023-11-21 11:44] LABS: Clue Cells No Clue Cells Seen (None Seen); Trichomonas No Trichomonas Seen (None Seen); Yeast No Yeast Seen (None Seen)
[2023-11-21 12:03] LABS: Fetal Fibronectin* Negative (Negative)
[2023-11-21 12:29] LABS: Appearance Urine Clear (Clear); Bilirubin Urine Negative (Negative); Blood Urine Negative (Negative); Color Urine Yellow (Yellow); Glucose Urine Negative (Negative); Ketones Urine Negative (Negative); Leukocyte Esterase Urine Negative (Negative); Nitrite Urine Negative (Negative); Protein Urine Negative (Negative); Specific Gravity Urine 1.015 (1.000-1.030); Urobilinogen Urine 0.2 (0.2-1.0)
[2023-11-21] MEDS: NIFEdipine 10 MG CAPSULE PO (12:55)
[2023-11-21 13:31] VITALS: BP 116/70; PULSE 85
--- NOTE | 2023-11-21 15:52 | PC.OBNST ---
NST Note NST Note Start: 11/21/23 10:37 Freq: ONCE Status: Discharge Protocol: Document 11/21/23 14:28 ANDREA (Rec: 11/21/23 15:51 LUIS [id number]) NST Note 1 Para (# of births) 0 EDC 02/10/24 Gestational Age In Weeks & Days 28 Weeks & 3 Days Patient Presented with Complaint(s) of Contractions/cramping Reactive Yes Appropriate for Gestational Age Yes RN Philippe Merida RN Date 11/21/23 Reactive Yes Appropriate for Gestational Age Yes PAT Karimi RNC Date 11/21/23 OB NST charge Yes Complete NST Note via Write Note Yes The provider's electronic signature indicates the NST is reactive/appropriate for gestational age. *Note to provider: If an addendum is required, open the patient's chart and click on the note under the Nurse/Allied Health tab.
== END 2023-11-21 14:58 | disposition home or self-care (01) ==
LOC: OB OUT 10:25 → OB 10:26
PROVIDERS: Visit Provider Obstetrics & Gynecology
DX: O47.03 False labor before 37 completed weeks of gestation, third trimester (principal); Z3A.28 28 weeks gestation of pregnancy
CPT/HCPCS: 59025; 81003; 84112; 87210; G0463; A9270; J7120

== ENCOUNTER 2023-12-02 09:32 | Outpatient (CLI) | payer MEDICAID, SELFPAY ==
--- NOTE | 2023-12-02 10:15 | CRLHL7_ITS ---
For Patients: As a result of the Century Cures Act, medical imaging exams and procedure reports are released immediately into your electronic medical record. You may view this report before your referring provider. If you have questions, please contact your health care provider. INDICATION: uterine size-date discrepancy COMPARISON: 09/24/2023 TECHNIQUE: Real time pike scale imaging of the fetus was performed. FINDINGS: Sonographic imaging demonstrates a single living intrauterine gestation. Fetus demonstrates a regular cardiac rate of 144 beats per minute. Fetus has a vertex position. The placenta lies posteriorly. Amniotic fluid volume appears normal and there is a single deepest vertical pocket: 5.7 cm. The estimated weight is 1563gm which lies at the 51st %. On the prior OB ultrasound exam dated 09/24/2023 the estimated weight was at the 82nd%. BPD 52nd percentile. HC is 66th percentile. AC is 31st percentile. FL 72nd percentile. The HC/AC ratio measures 1.14 range (0.96-1.18). IMPRESSION: Sonographic gestational age 30 weeks 5 days and sonographic due date of 02/05/2024. Sonographic age 5 days ahead of the clinical age. Estimated weight 51st percentile. Abdominal circumference 31st percentile. Dictated by Santana Ventura MD @ 12/02/2023 11:53:10 AM (Electronically Signed)
== END 2023-12-02 09:33 | disposition home or self-care (01) ==
LOC: US 09:32
PROVIDERS: Visit Provider Obstetrics & Gynecology
DX: O26.843 Uterine size-date discrepancy, third trimester (principal); Z3A.30 30 weeks gestation of pregnancy
CPT/HCPCS: 76816

== ENCOUNTER 2023-12-30 11:12 | Outpatient (CLI) | payer MEDICAID, SELFPAY ==
[2023-12-30] VITALS (13 sets, daily range): BP systolic 115–140; BP diastolic 69–95; PULSE 85–107; RESP 18; TEMP 36.6; O2SAT 98
--- NOTE | 2023-12-30 12:39 | CRLHL7_ITS ---
For Patients: As a result of the Century Cures Act, medical imaging exams and procedure reports are released immediately into your electronic medical record. You may view this report before your referring provider. If you have questions, please contact your health care provider. INDICATION: decreased movement, abdominal pain, leaking fluid COMPARISON: 12/02/2023 TECHNIQUE: Real time pike scale imaging of the fetus was performed. Without non-stress testing. FINDINGS: Sonographic imaging demonstrates a single living intrauterine gestation. Fetus demonstrates a regular cardiac rate of 137 beats per minute. Fetus has a vertex position. The amniotic fluid volume appears normal and there is a single deepest pocket measurement of 4.5 cm. JENNIFER 13.7 cm. The fetus was active and demonstrated normal breathing movements. There was normal flexion and extension of the trunk and extremities. IMPRESSION: Normal biophysical profile score of 8 out of 8. Dictated by Santana Ventura MD @ 12/30/2023 10:29:34 PM (Electronically Signed)
[2023-12-30 12:48] LABS: Appearance Urine Clear (Clear); Bilirubin Urine Negative (Negative); Blood Urine Negative (Negative); Color Urine Yellow (Yellow); Glucose Urine Trace (Negative); Ketones Urine Negative (Negative); Leukocyte Esterase Urine Negative (Negative); Nitrite Urine Negative (Negative); Protein Urine Negative (Negative); Urobilinogen Urine 0.2 (0.2-1.0)
[2023-12-30 12:55] LABS: Amnisure Rom* Negative
[2023-12-30 13:18] LABS: Hematocrit 36.3 % (33.0-51.0); Hemoglobin* 11.9 gm/dL (12.0-16.0); Mean Corpuscular HGB Conc 33 gm/dL (32-36); Mean Corpuscular Hemoglobin 27 pg (26-34); Mean Corpuscular Volume 82 fL (80-100); Platelet Count* 189 K/uL (140-440); Red Blood Count 4.41 m/uL (4.00-5.20); White Blood Count* 9.47 K/uL (4.50-11.00)
[2023-12-30 13:25] LABS: Slide Review Reflex No
[2023-12-30 13:42] LABS: Alanine Aminotransferase* 24 U/L (4-35); Aspartate Amino Transferase* 38 U/L (12-35); Blood Urea Nitrogen* 7 mg/dL (5-24); Creatinine* 0.4 mg/dL (0.5-1.5); Estimated Glomerular Filt Rate 144 ml/min
[2023-12-30 13:43] LABS: Total Protein Urine 9 mg/dL
[2023-12-30 13:45] LABS: Creatinine Urine 28.2 mg/dL; Protein Creatinine Ratio Urine 0.32 (0-0.19)
--- NOTE | 2023-12-30 14:40 | P.OBO_ITS ---
OB Outpatient HPI History of Present Illness Date Seen: 12/30/23 History of Present Illness: 23 year old at 340/7 weeks who presents due to concerns of decreased movement, watery like vaginal discharge. Baby moving naturally: No Bleeding: No Contractions: Yes Leaking fluid: Yes (Uncertain) Discharge: No Heartburn: No Back pain: No Meds Home Medications and Allergies Home Medications ?Medication ?Instructions ?Recorded ?Confirmed ?Type epinephrine 0.3 mg/0.3 mL 0.3 ml IM PRN anaphylaxis 05/24/23 12/30/23 History injection, auto-injector docosahexaenoic acid 200 mg 200 mg PO DAILY 07/08/23 12/30/23 History capsule ( DHA) Allergies Allergy/AdvReac Type Severity Reaction Status Date / Time Peanut (Legumes) Allergy Severe Swelling Verified 12/30/23 11:44 amoxicillin Allergy Intermediate Hives Verified 12/30/23 11:44 Penicillins Allergy Intermediate Hives Verified 12/30/23 11:44 penicillin V Allergy Mild Rash Verified 12/30/23 11:44 [facility] Surgical History History of tonsillectomy and adenoidectomy ?Z90.89 - Acquired absence of other organs (ICD-10) Family History Father High cholesterol High blood pressure Social History What is your current living situation?: I presently have a place to live Problems where you live: no known problems In the past 12 months, utilities in danger of being shut off: no In past 12 months, lack of transportation kept you from medical appts, meetings, work, or getting things needed for daily living: no In the past 12 mos, have been you worried that your food would run out before you had money to buy more?: never true In the past 12 mos, the food you bought just didn't last and you didn't have money to buy more?: never true Smoking Status: Never smoker Do you use any of these nicotine containing products: None Second hand tobacco smoke exposure: No How often do you have a drink containing alcohol: never AUDIT-C Alcohol total score: 0 Non-prescribed substance use: denies use How often does anyone, including family, friends and others, physically hurt you : never How often does anyone, including family, friends and others, insult or talk down to you: never How often does anyone, including family, friends and others, threaten you with harm: never How often does anyone, including family, friends and others, scream or curse at you: never Little interest or pleasure in doing things: not at all Feeling down, depressed, or hopeless: not at all service: No History History 1 Elective abortions Para 0 Spontaneous abortions Hx # Term Pregnancies Ectopic pregnancies Hx # Pregnancies Multiple births Number of Living Children 0 OB - H&P: Exam Physical Exam Vital signs: Temp Pulse Resp BP Pulse Ox 97.9 F 88 18 124/79 98 12/30/23 11:21 12/30/23 14:03 12/30/23 11:21 12/30/23 14:03 12/30/23 11:20 Narrative: NST: 130 beats per minute/positive accelerations/negative deceleration/moderate variability/sporadic uterine contractions Labs Labs Laboratory Tests 12/30/23 12/30/23 12/30/23 Range/Units 13:02 12:50 12:30 WBC 9.47 (4.50-11.00) K/uL RBC 4.41 (4.00-5.20) m/uL Hgb 11.9 L (12.0-16.0) gm/dL Hct 36.3 (33.0-51.0) % MCV 82 (80-100) fL MCH 27 (26-34) pg MCHC 33 (32-36) gm/dL Plt Count 189 (140-440) K/uL BUN 7 (5-24) mg/dL Creatinine 0.4 L (0.5-1.5) mg/dL Estimated GFR 144 ml/min AST 38 H (12-35) U/L ALT 24 (4-35) U/L Urine Color Yellow (Yellow) Urine Appearance Clear (Clear) Urine pH 7.0 (5.0-8.5) Ur Specific [place] 1.010 (1.000-1.030) Urine Protein Negative (Negative) Urine Glucose (UA) Trace A (Negative) Urine Ketones Negative (Negative) Urine Blood Negative (Negative) Urine Nitrite Negative (Negative) Urine Bilirubin Negative (Negative) Urine Urobilinogen 0.2 (0.2-1.0) Ur Leukocyte Esterase Negative (Negative) Urine Creatinine 28.2 mg/dL Protein/Creatinin Ratio 0.32 H (0-0.19) Urine Total Protein 9 mg/dL Membrane Rupture Negative Assessment and Plan Assessment and plan (1) Vaginal discharge: Status: Acute (2) Elevated blood pressure reading without diagnosis of hypertension: Status: Acute Plan Patient evaluated today in Labor and delivery, due to concerns of decreased movement since this past weekend. Patient was seen on Friday in the clinic but was not satisfied with evaluation. Patient states that this past Friday she started to experience cold symptoms. Sinus headache, nasal congestion. Patient denies fever, chills, cough, sick contacts. States that on Friday she had to touch her belly to try to moved baby. States that on Friday she also experience uterine contractions every 15-20 minutes. Upon evaluation today labor and delivery she was initially found with 1 mild range elevated blood pressure. This is the 1st elevated blood pressure that has been documented during her . Also complained of a more watery like vaginal discharge. Evaluation today showed a reactive NST, BPP 8/8 with a normal amniotic fluid index. AmniSure collected and found negative. Preeclampsia labs collected to be very thorough this showed slight elevation of her protein to creatinine ratio as well as slight elevation of her AST (38). Currently denies significant headache, she had been treating headache with Tylenol and headache did completely resolve, no vision changes, no pain in her upper abdomen. Lab work findings could be associated with recent viral syndrome. I would like for her to complete a 24 hour urine collection and to have a repeat follow-up in the clinic, patient can complete 24 hour urine collection and bring this in tomorrow afternoon. She does work tomorrow night and would prefer follow-up in the clinic on . I think this is reasonable, we did discuss that if she has ever again decreased movement that she needs to come in to be evaluated at the moment of her concerns. Patient is in agreement with plan. We also decided not to check cervix today as she is not showing frequent uterine contractions in the monitor, she is also not describing frequent painful uterine contractions at this moment.
--- NOTE | 2023-12-30 15:05 | PC.OBNST ---
NST Note NST Note Start: 12/30/23 11:25 Freq: ONCE Status: Discharge Protocol: Document 12/30/23 15:01 MMB (Rec: 12/30/23 15:03 MMB [id number]) NST Note 1 Para (# of births) 0 EDC 02/10/24 Gestational Age In Weeks & Days 34 Weeks & 0 Days Patient Presented with Complaint(s) of Leaking fluid,Decreased movement,Pain,Headache If Pain, describe location Abdominal pain Reactive Yes Appropriate for Gestational Age Yes RN Elisabet Karimi RN Date 12/30/23 Reactive Yes Appropriate for Gestational Age Yes PAT Fu RN Date 12/30/23 OB NST charge Yes Complete NST Note via Write Note Yes The provider's electronic signature indicates the NST is reactive/appropriate for gestational age. *Note to provider: If an addendum is required, open the patient's chart and click on the note under the Nurse/Allied Health tab.
== END 2023-12-30 14:45 | disposition home or self-care (01) ==
LOC: OB OUT 11:12 → OB 11:13
PROVIDERS: Visit Provider Obstetrics & Gynecology
DX: O36.8130 Decreased fetal movements, third trimester, not applicable or unspecified (principal); Z3A.34 34 weeks gestation of pregnancy
CPT/HCPCS: 36415; 59025; 76819; 81003; 82565; 82570; 84112; 84156; 84450; 84460; 84520; 85027; G0463

== ENCOUNTER 2023-12-31 16:13 | Outpatient (CLI) | payer MEDICAID, SELFPAY | END 2023-12-31 16:14 | disposition home or self-care (01) | LOC: NFLDREF 16:15 | PROVIDERS: Visit Provider Obstetrics & Gynecology | DX: Z34.93 Encounter for supervision of normal pregnancy, unspecified, third trimester (principal); Z3A.34 34 weeks gestation of pregnancy | CPT/HCPCS: 82570; 84156 ==

== ENCOUNTER 2024-01-01 14:52 | Outpatient (CLI) | payer MEDICAID, SELFPAY | END 2024-01-01 14:53 | disposition home or self-care (01) | PROVIDERS: Visit Provider Obstetrics & Gynecology | DX: Z34.93 Encounter for supervision of normal pregnancy, unspecified, third trimester (principal); Z3A.34 34 weeks gestation of pregnancy | CPT/HCPCS: 82565; 84450; 84460; 84520 ==

== ENCOUNTER 2024-01-06 09:04 | Outpatient (CLI) | payer MEDICAID, SELFPAY | END 2024-01-06 09:05 | disposition home or self-care (01) | PROVIDERS: Visit Provider Obstetrics & Gynecology | DX: O13.3 Gestational [pregnancy-induced] hypertension without significant proteinuria, third trimester (principal); Z3A.35 35 weeks gestation of pregnancy | CPT/HCPCS: 82565; 82570; 84156; 84450; 84460; 84520 ==

== ENCOUNTER 2024-01-09 10:34 | Outpatient (CLI) | payer MEDICAID, SELFPAY ==
[2024-01-09] VITALS (53 sets, daily range): BP systolic 97–143; BP diastolic 55–83; PULSE 62–93; RESP 20–23; TEMP 36.4–36.6; O2SAT 97–100
[2024-01-09 10:57] LABS: Hematocrit 35.5 % (33.0-51.0); Hemoglobin* 11.7 gm/dL (12.0-16.0); Mean Corpuscular HGB Conc 33 gm/dL (32-36); Mean Corpuscular Hemoglobin 27 pg (26-34); Mean Corpuscular Volume 82 fL (80-100); Platelet Count* 239 K/uL (140-440); Red Blood Count 4.34 m/uL (4.00-5.20); Slide Review Reflex No; White Blood Count* 11.66 K/uL (4.50-11.00)
[2024-01-09] MEDS: ACETAMINOPHEN 500 MG TABLET 1000 MG PO (11:00)
[2024-01-09 11:16] LABS: Total Protein Urine 9 mg/dL
[2024-01-09 11:16] LABS: Alanine Aminotransferase* 19 U/L (4-35); Aspartate Amino Transferase* 23 U/L (12-35); Blood Urea Nitrogen* 5 mg/dL (5-24); Creatinine* 0.4 mg/dL (0.5-1.5); Estimated Glomerular Filt Rate 144 ml/min
[2024-01-09 11:17] LABS: Creatinine Urine 29.1 mg/dL; Protein Creatinine Ratio Urine 0.31 (0-0.19)
[2024-01-09] MEDS: diphenhydrAMINE 50 MG/ML inj 25 MG IVP (12:49)
[2024-01-09] MEDS: LACTATED RINGERS 500 ML 500 ML IV (12:56)
[2024-01-09] MEDS: METOCLOPRAMIDE HCL 5 MG/ML INJ 10 MG IVP (15:05)
--- NOTE | 2024-01-09 16:13 | PC.OBNST ---
NST Note NST Note Start: 01/09/24 10:35 Freq: ONCE Status: Active Protocol: Document 01/09/24 15:45 HCR (Rec: 01/09/24 16:09 HCR [id number]) NST Note 1 Para (# of births) 0 EDC 02/10/24 Gestational Age In Weeks & Days 35 Weeks & 3 Days High Risk Factors High Blood Pressure - Gestational Patient Presented with Complaint(s) of Headache,Other Other Complaints Sent to L&D triage from clinic - elevated diastolic pressure in clinic of 92, ongoing ALONSO and puffy face. Reactive Yes Appropriate for Gestational Age Yes PAT Choudhary, RN Date 01/09/24 Reactive Yes Appropriate for Gestational Age Yes PAT Jani RN Date 01/09/24 OB NST charge Yes Complete NST Note via Write Note Yes The provider's electronic signature indicates the NST is reactive/appropriate for gestational age. *Note to provider: If an addendum is required, open the patient's chart and click on the note under the Nurse/Allied Health tab.
== END 2024-01-09 15:46 | disposition home or self-care (01) ==
LOC: OB OUT 10:35 → OB 10:35
PROVIDERS: Obstetrics & Gynecology; Visit Provider Obstetrics & Gynecology
DX: Z34.93 Encounter for supervision of normal pregnancy, unspecified, third trimester (principal); Z3A.35 35 weeks gestation of pregnancy
CPT/HCPCS: 36415; 59025; 76816; 76819; 82565; 82570; 84156; 84450; 84460; 84520; 85027; G0463; A9270; J1200; J2765; J7120

== ENCOUNTER 2024-01-12 11:01 | Outpatient (CLI) | payer MEDICAID, SELFPAY | END 2024-01-12 11:02 | disposition home or self-care (01) | PROVIDERS: Visit Provider Obstetrics & Gynecology | DX: O13.3 Gestational [pregnancy-induced] hypertension without significant proteinuria, third trimester (principal); Z3A.35 35 weeks gestation of pregnancy | CPT/HCPCS: 82565; 82570; 84156; 84450; 84460; 84520; 87081; 87653 ==

== ENCOUNTER 2024-01-16 12:58 | Outpatient (CLI) | payer MEDICAID, SELFPAY ==
--- NOTE | 2024-01-16 13:00 | CRLHL7_ITS ---
For Patients: As a result of the Century Cures Act, medical imaging exams and procedure reports are released immediately into your electronic medical record. You may view this report before your referring provider. If you have questions, please contact your health care provider. INDICATION: Gestational hypertension COMPARISON: 01/09/2024 TECHNIQUE: Real time pike scale imaging of the fetus was performed. Without non-stress testing. FINDINGS: Sonographic imaging demonstrates a single living intrauterine gestation. Fetus demonstrates a regular cardiac rate of 138 beats per minute. Fetus has a vertex position. The amniotic fluid volume appears normal and there is a single deepest pocket measurement of 3.1 cm. The fetus was active and demonstrated normal breathing movements. There was normal flexion and extension of the trunk and extremities. IMPRESSION: Normal biophysical profile score of 8 out of 8. Dictated by Santana Ventura MD @ 01/19/2024 4:37:31 PM (Electronically Signed)
== END 2024-01-16 12:59 | disposition home or self-care (01) ==
LOC: US 12:59
PROVIDERS: Visit Provider Obstetrics & Gynecology
DX: O13.3 Gestational [pregnancy-induced] hypertension without significant proteinuria, third trimester (principal); Z3A.36 36 weeks gestation of pregnancy
CPT/HCPCS: 76819; 82565; 82570; 84156; 84450; 84460; 84520

== ENCOUNTER 2024-01-18 08:21 | Outpatient (CLI) | payer MEDICAID, SELFPAY ==
[2024-01-18] VITALS (8 sets, daily range): BP systolic 114–123; BP diastolic 72–77; PULSE 75–87; O2SAT 98
[2024-01-18 09:15] LABS: Hematocrit 37.2 % (33.0-51.0); Hemoglobin* 12.1 gm/dL (12.0-16.0); Mean Corpuscular HGB Conc 33 gm/dL (32-36); Mean Corpuscular Hemoglobin 27 pg (26-34); Mean Corpuscular Volume 82 fL (80-100); Platelet Count* 228 K/uL (140-440); Red Blood Count 4.53 m/uL (4.00-5.20); White Blood Count* 11.91 K/uL (4.50-11.00)
[2024-01-18 09:26] LABS: Slide Review Reflex No
[2024-01-18 09:29] LABS: Alanine Aminotransferase* 15 U/L (4-35); Aspartate Amino Transferase* 21 U/L (12-35); Blood Urea Nitrogen* 7 mg/dL (5-24); Creatinine* 0.5 mg/dL (0.5-1.5); Estimated Glomerular Filt Rate 137 ml/min
[2024-01-18 09:30] LABS: Total Protein Urine < 5 mg/dL
[2024-01-18 09:31] LABS: Creatinine Urine 127.6 mg/dL; Protein Creatinine Ratio Urine 0.04 (0-0.19)
--- NOTE | 2024-01-18 10:53 | PC.OBNST ---
NST Note NST Note Start: 01/18/24 08:36 Freq: ONCE Status: Active Protocol: Document 01/18/24 10:52 ABP (Rec: 01/18/24 10:53 ABP [id number]) NST Note 1 Para (# of births) 0 EDC 02/10/24 Gestational Age In Weeks & Days 36 Weeks & 5 Days High Risk Factors High Blood Pressure - Gestational Patient Presented with Complaint(s) of Other Other Complaints High blood pressure at home. Reactive Yes PAT Manning RN Date 01/18/24 Reactive Yes PAT Mora RN Date 01/18/24 OB NST charge Yes Complete NST Note via Write Note Yes The provider's electronic signature indicates the NST is reactive/appropriate for gestational age. *Note to provider: If an addendum is required, open the patient's chart and click on the note under the Nurse/Allied Health tab.
== END 2024-01-18 10:30 | disposition home or self-care (01) ==
LOC: OB OUT 08:27 → OB 08:32
PROVIDERS: Visit Provider Obstetrics & Gynecology
DX: O13.3 Gestational [pregnancy-induced] hypertension without significant proteinuria, third trimester (principal); Z3A.36 36 weeks gestation of pregnancy
CPT/HCPCS: 36415; 59025; 82565; 82570; 84156; 84450; 84460; 84520; 85027; G0463

== ENCOUNTER 2024-01-20 06:01 | Inpatient (IN) | payer MEDICAID, SELFPAY ==
[2024-01-20] VITALS (78 sets, daily range): BP systolic 100–196; BP diastolic 52–156; PULSE 63–96; RESP 16–20; TEMP 36.5–36.8; O2SAT 90–100; BMI 32.8
[2024-01-20] MEDS: LACTATED RINGERS 1000 ML 1,000 ML 125 ML IV (06:48)
[2024-01-20] MEDS: OXYTOCIN 30 unit/500 ML in NS 30 UNIT/500 ML BAG IVPB (06:49)
[2024-01-20 06:57] LABS: Basophils Percent Auto 0.3 % (0.0-3.0); Eosinophils Percent Auto 1.3 % (0.0-7.0); Hematocrit 35.5 % (33.0-51.0); Hemoglobin* 11.6 gm/dL (12.0-16.0); Immature Granulocytes Pct Auto 0.3 %; Lymphocytes Percent Auto 21.8 % (20-44); Mean Corpuscular HGB Conc 33 gm/dL (32-36); Mean Corpuscular Hemoglobin 27 pg (26-34); Mean Corpuscular Volume 82 fL (80-100); Monocytes Percent Auto 6.1 % (0.0-11.0); Neutrophils Percent Auto 70.2 % (42.0-72.0); Platelet Count* 222 K/uL (140-440); RDW Coefficient of Variation % 13.7 % (11.5-15.5); Red Blood Count 4.34 m/uL (4.00-5.20); White Blood Count* 11.87 K/uL (4.50-11.00)
[2024-01-20 06:59] LABS: Slide Review Reflex No
[2024-01-20 07:11] LABS: Alanine Aminotransferase* 16 U/L (4-35); Aspartate Amino Transferase* 22 U/L (12-35); Creatinine* 0.5 mg/dL (0.5-1.5); Est. Creatinine Clearance* 179.54; Estimated Glomerular Filt Rate 137 ml/min
[2024-01-20 07:12] LABS: Blood Urea Nitrogen* 9 mg/dL (5-24)
--- NOTE | 2024-01-20 07:43 | P.LDBA_ITS ---
Subjective History of Present Illness Date Seen: 01/20/24 Narrative: Patient is being admitted to Labor and Delivery for induction of labor for indication of gestational HTN. She is a 23 year old at 37 0/7 weeks gestation. Her full history and physical was dictated by Dr. Cross on 01/11. Please see this for details. Specific Issues/Plans G1 Baby: Girl. Imer H&P 01/11 Dr. Cross #GHTN- dx. 01/06/24 Seen at L&D on 12/29 due to decreased movements, had 1 elevated BP 24 hour urine collection protein normal PreE labs AST 12/30/23: 38, repeated 01/01/24 Twice weekly monitoring until delivery at 37 weeks Weekly preE labs # Threatened labor * Evaluated and treated at [facility] * Received betamethasone x2 on 11/02 and 11/03, treated with indomethacin, cervix /-3 * Has been utilizing Nifedipine 10mg Q6hrs, start to taper down- 12/02/23 * Rechecked on 12/14 - unchanged * Off nifedipine as of 30 weeks #Measuring smaller than dates Growth US on 12/02/23 normal #HepB non immune - no risk factors #Penicillin allergy First pap due Imagin07/08/23: 9 weeks, 4 days by CRL with sonographic YAMILET 02/06/24. Subchorionic hemorrhage 2.7 cm in greatest dimension. 09/24/23: EFW 82%, AC 69%, normal anatomy, posterior placenta without previa, normal fluid 12/02/2023: Growth ultrasound: BPD: 52 percentile, HC: 65 percentile, AAC: 30.9 percentile, FL: 71.5 percentile. EFW: 50.8 percentile normal growth. Vertex presentation. SDP: 5.7 cm 01/09/24: Cephalic, normal fluid, EFW 52%, AC 47%. TDAP:12/02/23 PHQ9 and GAD7: RSV: 01/06/24 Hgb: 01/01/24 12.2 GBS: 01/11 negative FLU/COVID: declines OB - Problem Based A/P Additional Plan (1) : Status: Acute (2) Gestational hypertension: Status: Acute Plan: Currently with mildly elevated blood pressures on an intermittent basis. Continue to monitor. Plan Continue induction of labor with Pitocin. Currently at milliunits a minute. Continuous monitoring. Epidural as desired. Delivery/Labor/Induction Plan Plan: induction Induction method: AROM OB Exam Physical Exam Vital signs: Temp Pulse BP Pulse Ox 98.2 F 92 126/76 97 01/20/24 06:13 01/20/24 07:24 01/20/24 07:24 01/20/24 06:13 Narrative: Physical exam: General: No acute distress Psych: Alert and oriented x3 HEENT: Normocephalic, atraumatic Heart: Regular rate and rhythm, no murmur rub or gallop Lungs: Clear to auscultation bilaterally Abdomen: Soft, nontender, gravid, cephalic lie Pelvic exam: Cervix 4 cm, 90%,-1 station, anterior and soft. AROM at 11:40 a.m. for abundant clear fluid. tracing: Baseline 140 / accelerations present / no decelerations / moderate variability.
[2024-01-20 07:51] LABS: Total Protein Urine < 5 mg/dL
[2024-01-20 07:52] LABS: Creatinine Urine 113.1 mg/dL; Protein Creatinine Ratio Urine 0.04 (0-0.19)
[2024-01-20] MEDS: ROPIVACAINE 0.2% 100 ml 100 ML 12 MG EPIDURAL (13:15)
--- NOTE | 2024-01-20 13:20 | PM.ANBPRC ---
[facility] Medical History (Updated 01/16/24 @ 13:17 by Ivet Cross MD) GERD (gastroesophageal reflux disease) ?K21.9 - Gastro-esophageal reflux disease without esophagitis (ICD-10) Surgical History History of tonsillectomy and adenoidectomy ?Z90.89 - Acquired absence of other organs (ICD-10) Family History (Updated 01/12/24 @ 10:54 by Ivet Cross MD) Father High cholesterol High blood pressure Other Diabetes Social History (Updated 01/12/24 @ 10:55 by Ivet Cross MD) Narrative: Lives in [place] with boyfriend. 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 Doesn't smoke, drink alcohol or use recreational drugs. What is your current living situation?: I presently have a place to live Problems where you live: no known problems In the past 12 months, utilities in danger of being shut off: no In past 12 months, lack of transportation kept you from medical appts, meetings, work, or getting things needed for daily living: no In the past 12 mos, have been you worried that your food would run out before you had money to buy more?: never true In the past 12 mos, the food you bought just didn't last and you didn't have money to buy more?: never true Smoking Status: Never smoker Do you use any of these nicotine containing products: None Second hand tobacco smoke exposure: No How often do you have a drink containing alcohol: never AUDIT-C Alcohol total score: 0 Non-prescribed substance use: denies use How often does anyone, including family, friends and others, physically hurt you: never How often does anyone, including family, friends and others, insult or talk down to you: never How often does anyone, including family, friends and others, threaten you with harm: never How often does anyone, including family, friends and others, scream or curse at you: never Little interest or pleasure in doing things: not at all Feeling down, depressed, or hopeless: not at all service: No Meds Home Medications and Allergies Home Medications ?Medication ?Instructions ?Recorded ?Confirmed ?Type epinephrine 0.3 mg/0.3 mL 0.3 ml IM PRN anaphylaxis 05/24/23 01/20/24 History injection, auto-injector docosahexaenoic acid 200 mg 200 mg PO DAILY 07/08/23 01/20/24 History capsule ( DHA) Allergies Allergy/AdvReac Type Severity Reaction Status Date / Time Peanut (Legumes) Allergy Severe Swelling Verified 01/16/24 13:53 amoxicillin Allergy Intermediate Hives Verified 01/16/24 13:53 Penicillins Allergy Intermediate Hives Verified 01/16/24 13:53 penicillin V Allergy Mild Rash Verified 01/16/24 13:53 Results Labs Labs: Laboratory Results - last 24 hr 01/20/24 01/20/24 06:45 07:11 WBC 11.87 H RBC 4.34 Hgb 11.6 L Hct 35.5 MCV 82 MCH 27 MCHC 33 RDW Coeff of [place] 13.7 Plt Count 222 Neut % (Auto) 70.2 Lymph % (Auto) 21.8 [place] % (Auto) 6.1 Eos % (Auto) 1.3 Baso % (Auto) 0.3 Neut # (Auto) 8.30 H Lymph # (Auto) 2.60 [place] # (Auto) 0.70 Eos # (Auto) 0.20 Baso # (Auto) 0.00 Abs Immat Gran (auto) 0.00 Imm/Tot Granulo (auto) 0.3 BUN 9 Creatinine 0.5 Estimated Creat Clear 179.54 Estimated GFR 137 AST 22 ALT 16 Urine Creatinine 113.1 Protein/Creatinin Ratio 0.04 Urine Total Protein < 5 Blood Type A Positive Antibody Screen NEGATIVE Vital Signs Vital Signs: Last Vital Signs Temp 97.7 F 01/20/24 11:03 Pulse 73 01/20/24 13:19 Resp 18 01/20/24 11:03 BP 137/73 01/20/24 13:19 Pulse Ox 100 01/20/24 13:18 Weight: 98.157 kg Height: 172.72 cm Anesthesia Procedures Epidural Insertion Patient Location: OB Start Time: 13:00 Stop Time: :25 Start Date: 01/20/24 Stop Date: 01/20/24 Reason for Block: procedure for pain Patient Position: other (Epidural assisted by MONICA Cortez) Performed By: Zachery Tam Preanesthetic Checklist: IV checked, risks and benefits discussed, monitors and equipment checked, pre-op evaluation, timeout performed and anesthesia consent Prep: chlorhexidine gluconate Monitoring: blood pressure monitoring, continuous pulse oximetry and heart rate Approach: midline Vertebral Space: lumbar (1-5) Epidural Technique: MARVIN saline Needle Type: Tuohy needle Injection Technique: continuous catheter Needle gauge: 17 Needle Length (cm): 10 cm Needle Insertion Depth (cm): 6 Catheter Gauge: 19 Catheter Type: multi-orifice Catheter at skin depth (cm): 12 Test Dose Result: negative and lidocaine 1.5% with epinephrine 1 to 200,000
[2024-01-20] MEDS: BUPIVACAINE 0.25% PF 10 ML 10 ML ML EPIDURAL (13:30)
--- NOTE | 2024-01-20 16:10 | W.PM.VAGDEL1 ---
Procedure Delivery date: 01/20/24 Procedure Done: [employer] Procedure Details: The patient is a 23 year-old G 1 P 0 admitted on 01/20/2024 at 37 Weeks, 0 Days gestation for induction of labor for indication of gestational hypertension.? Cervical exam on admission was 4 cm, 90%,-1 station, anterior and soft with membranes intact in vertex presentation.? heart rate demonstrated baseline 140 bpm with moderate variability, positive accelerations, no decelerations; a category 1 tracing.? AROM occurred at 11:40 a.m. with clear fluid. ? Labor Analgesia:? Epidural ? Pitocin:? Yes ? Labor onset:? 12:20 p.m. ? Complete:? 2:25 p.m. ? Pushing:? 2:36 p.m. ? heart tones during second stage were category 2, with recurrent brief variable decelerations noted. ? At 3:47 p.m. a viable female infant delivered in vertex OA presentation over intact perineum via spontaneous vaginal delivery.? was placed on maternal abdomen.? Cord was clamped and cut after a 30-60 second delay.? Nose and mouth were bulb suctioned.? Infant weight pending.? 7 at 1 minute and 9 at 5 minutes.? Shoulder dystocia: No.? Nuchal cord: No. ? Placenta delivered spontaneously and complete at 3:50 p.m. with a 3 vessel cord. ? Mother and infant were stable after delivery. ? Lacerations:? Right labial laceration and laceration of the remnant of the right hymeneal ring, repaired with a running suture of 3-0 Vicryl after infiltration with 10 mL of 1% lidocaine. ? Blood loss: 100 mL. Blood loss measurement type: QBL ? Sponge and needles counts are correct.
[2024-01-20] MEDS: ACETAMINOPHEN 500 MG TABLET 1000 MG PO (20:32)
[2024-01-21 00:19] VITALS: BP 120/80; PULSE 63; RESP 16; O2SAT 97
[2024-01-21] MEDS: IBUPROFEN 600 MG TABLET PO ×3 (00:24→21:08)
[2024-01-21] MEDS: ACETAMINOPHEN 500 MG TABLET 1000 MG PO ×4 (04:15→23:18)
[2024-01-21 04:45] VITALS: BP 126/84; PULSE 61; RESP 18; O2SAT 97
[2024-01-21 05:13] LABS: Alanine Aminotransferase* 20 U/L (4-35); Aspartate Amino Transferase* 39 U/L (12-35); Blood Urea Nitrogen* 7 mg/dL (5-24); Creatinine* 0.5 mg/dL (0.5-1.5); Est. Creatinine Clearance* 179.54; Estimated Glomerular Filt Rate 137 ml/min
[2024-01-21 05:14] LABS: Hematocrit 36.3 % (33.0-51.0); Hemoglobin* 11.9 gm/dL (12.0-16.0); Red Blood Count 4.36 m/uL (4.00-5.20)
[2024-01-21 05:15] LABS: Lymphocytes Percent Auto 19.8 % (20-44); Mean Corpuscular HGB Conc 32 gm/dL (32-36); Mean Corpuscular Hemoglobin 27 pg (26-34); Mean Corpuscular Volume 83 fL (80-100); Monocytes Percent Auto 5.6 % (0.0-11.0); Neutrophils Percent Auto 73.4 % (42.0-72.0); Platelet Count* 182 K/uL (140-440)
[2024-01-21 05:16] LABS: Basophils Percent Auto 0.2 % (0.0-3.0); Eosinophils Percent Auto 0.6 % (0.0-7.0); Slide Review Reflex No
[2024-01-21 05:17] LABS: Immature Granulocytes Abs Auto 0.07 K/uL (0.00-0.30)
--- NOTE | 2024-01-21 07:30 | P.OBPN_ITS ---
OB - PN:Subj Subjective Date Seen: 01/21/24 Patient comments OB post-: no complaints [place] status: feeding status: exclusively Narrative: ?The patient feels well.? The pain is well controlled with current medications.? She has no new complaints.? Urinary output is adequate and she is voiding without difficulty.? Has a good appetite, is tolerating a general diet, is passing flatus, and has not had a bowel movement.? Has small amount of rubra lochia.? She is ambulating well. She is and reports it is not going well.?Baby only sucks a few times, then falls asleep. Hand-expressed colostrum was brought in from home. She is open to seeing today. OB - PN: Obj Exam Physical Exam: Vital signs: Temp Pulse Resp BP Pulse Ox O2 Del Method 98 F 61 18 126/84 97 Room Air 01/20/24 19:57 01/21/24 04:45 01/21/24 04:45 01/21/24 04:45 01/21/24 04:45 01/21/24 04:45 Narrative: GENERAL APPEARANCE:? normal affect, alert, no distress MOOD:? appropriate CHEST:? clear to auscultation HEART:? regular rate and rhythm ABDOMEN:? soft, non-tender the uterine fundus is At Umbilicus, off right and is appropriate for the stage of recovery. she has not voided for a couple of hours. PERINEUM:? minimal edema of the perineum, no oozing or redness noted EXTREMITIES:? normal and mild edema, +3/4 reflexes and negative clonus of bilateral lower extremities OB - PN: Obj Data Labs Labs: Laboratory Results - last 24 hr 01/20/24 01/20/24 01/21/24 06:45 07:11 04:04 WBC 17.80 H RBC 4.36 Hgb 11.9 L Hct 36.3 MCV 83 MCH 27 MCHC 32 Plt Count 182 Neut % (Auto) 73.4 H Lymph % (Auto) 19.8 L [place] % (Auto) 5.6 Eos % (Auto) 0.6 Baso % (Auto) 0.2 Neut # (Auto) 13.10 H Lymph # (Auto) 3.50 H [place] # (Auto) 1.00 H Eos # (Auto) 0.10 Baso # (Auto) 0.00 Abs Immat Gran (auto) 0.07 BUN 7 Creatinine 0.5 Estimated Creat Clear 179.54 Estimated GFR 137 AST 39 H ALT 20 Urine Creatinine 113.1 Protein/Creatinin Ratio 0.04 Urine Total Protein < 5 Blood Type A Positive Antibody Screen NEGATIVE OB - PN: A/P Delivery Assessment and Plan (1) Gestational hypertension: Status: Acute (2) care and examination immediately after delivery: Status: Acute (3) (normal spontaneous vaginal delivery): Status: Acute Plan day: 1 Plan: routine care Comments: PP day #1 Routine care continue monitoring HTN and consider medication as needed. Currently, normotensive. Reviewed BP monitoring at home after discharge and appt Friday in clinic May see as desired Anticipate discharge 01/22/2024
[2024-01-21 07:48] VITALS: BP 137/80; PULSE 68; RESP 18; O2SAT 98
[2024-01-21] MEDS: DOCUSATE SODIUM 100 MG CAPSULE PO (09:26)
[2024-01-21 12:03] VITALS: BP 122/78; PULSE 76; RESP 18; O2SAT 97
--- NOTE | 2024-01-21 13:03 | PM.ANPOST ---
Post Anesthesia Note Post Anesthesia Note Patient seen: Inpatient Respiratory Status: adequate Cardiovascular Status: adequate Mental Status: baseline Pain: adequate Temp: baseline Anesthetic awareness: N/A Complications: none Follow care: none
[2024-01-21 16:15] VITALS: BP 128/72; PULSE 79; RESP 16; TEMP 36.7; O2SAT 98
[2024-01-21 20:58] VITALS: BP 128/80; PULSE 80; RESP 18; TEMP 36.5; O2SAT 96
[2024-01-22 01:21] LABS: Rapid Plasma Reagin (RPR) Non Reactive (Non Reactive)
[2024-01-22 02:22] VITALS: BP 124/85; PULSE 77; RESP 17; TEMP 36.7; O2SAT 96
[2024-01-22] MEDS: IBUPROFEN 600 MG TABLET PO ×2 (02:38→09:51)
[2024-01-22] MEDS: BENZOCAINE/MENTHOL SPRAY 85 GM AEROSOL 1 APPLIC TOPICAL (03:00)
[2024-01-22 05:33] VITALS: BP 134/92; PULSE 84; RESP 16; TEMP 36.3; O2SAT 98
[2024-01-22 05:49] VITALS: BP 125/82
[2024-01-22] MEDS: ACETAMINOPHEN 500 MG TABLET 1000 MG PO ×2 (05:59→14:03)
--- NOTE | 2024-01-22 07:25 | P.DS_ITS ---
DS: Providers Provider Date Seen: 01/22/24 Date of admission: 01/20/24 06:01 Primary care physician: Not a Local Provider Admitting Clinician: Ivet Cross MD Attending Physician on discharge: Ivet Cross MD Date of Discharge: 01/22/24 DS: Diagnosis Discharge Diagnosis (1) care and examination immediately after delivery: Status: Acute (2) Lactating mother: Status: Acute (3) Gestational hypertension: Status: Acute Exam Narrative: Exam Narrative: VSS, afebrile GENERAL APPEARANCE: ?normal affect, alert, no distress MOOD: ?appropriate HEENT: normocephalic, neck supple, full ROM CHEST: ?Symmetrical chest wall movement. ?Normal respiratory effort. ?Clear to auscultation HEART: ?regular rate and rhythm ABDOMEN: ?soft, non-tender. Uterine fundus is firm, 3 below Umbilicus, Midline and is appropriate for the stage of recovery. ?Bowel sounds present. PERINEUM: ?mild edema of the perineum, there is a labial laceration that is healing well. EXTREMITIES: ?normal and no edema Const: Vital Signs, click to edit/add: Vital Signs - 24 hr 01/21/24 07:48 01/21/24 12:03 01/21/24 20:58 Temperature 97.7 F Pulse Rate [Pulse Oximeter] 68 76 80 Respiratory Rate 18 18 18 Blood Pressure [Ri ght Arm] 137/80 122/78 128/80 Pulse Oximetry 98 97 96 Oxygen Delivery Me thod Room Air Room Air 01/22/24 02:22 01/22/24 05:33 01/22/24 05:49 Temperature 98.0 F 97.4 F L Pulse Rate [Pulse Oximeter] 77 84 Respiratory Rate 17 16 Blood Pressure [Ri ght Arm] 124/85 134/92 H 125/82 Pulse Oximetry 96 98 Oxygen Delivery Me thod Room Air Room Air Documenting provider has reviewed patient's vital signs: yes OB - DS: Summary Hospital Course Hospital Course: Azeb is a 23 y.o. who was admitted to L & D for induction of labor for GHTN. ?She had an uncomplicated NVD.?The patient feels well. ?The pain is well controlled with current medications. ?She has no new complaints. ?She is breast feeding and reports things are going well.? the patient has done well.? Vitals have been stable.? She has remained afebrile.? Has a good appetite, is tolerating a general diet. ?She is voiding without difficulty.? She is passing gas and has not had a bowel movement.? She is ambulating and denies any dizziness.? Has Small amount of rubra lochia. ?She is planning condoms for prevention. Blood pressures are stable since delivery. Peripartum Data delivery method: Vaginal Laceration description: Labial complications: none Gender: Female Infant Discharge Plan: Home Status at Discharge Functional status at discharge: independent ambulation Overall status at discharge: patient is progressing back to baseline Time Spent with Patient Time attestation: Total time spent providing and/or coordinating discharge services: Time spent: Less than 30 minutes Discharge Plan Discharge Disposition: Home, Self-Care Date of Admission: 01/20/24 06:01 Attending Provider on Discharge: Octavio Henley Primary Care Provider: Provider,Not a Local Condition: Stable Anticipated Discharge Date/Time: 01/22/24 Discharge Medications: New acetaminophen 500 mg Tablet 1,000 mg PO Q6H PRNQty: 0 0RF docusate sodium 100 mg Capsule 100 mg PO DAILY Qty: 60 2RF ibuprofen 600 mg Tablet 600 mg PO Q6H PRNQty: 90 0RF Continued omeprazole 40 mg capsule,delayed release(DR/EC) 40 mg PO QDAY Qty: 90 0RF DHA 200 mg capsule 200 mg PO DAILY epinephrine 0.3 mg/0.3 mL auto-injector 0.3 ml IM PRN Discharge Orders: Discharge Order (Routine); Ordered 01/22/24 Ordered By: Octavio Henley Patient Education: OB Vaginal/Breast Feeding Additional Instructions: Discharge instructions were reviewed with the patient including signs and symptoms of infection and home going medications Nothing vaginally for 6 weeks: no tampons or intercourse Off Work or School for 6 weeks Symptoms to report to doctor: * Bleeding that saturates more than one pad per hour * Passing clots larger than the size of a golf ball * Pain not relieved by prescribed medication * Fever above 100.4 degrees Fahrenheit * A foul vaginal odor * Difficulty in emotions, mood, and functions * Thoughts of hurting yourself and/or * Painful, reddened area in your breast * Any drainage, redness, or tenderness in your IV/epidural site * Severe headache that doesn't improve after taking medications * Changes in vision, including temporary loss of vision, blurred vision, and/or light sensitivity * Upper abdominal pain (usually under ribs on the right side) * Decrease in urination or painful, frequent urinating * Chest pain * Shortness of breath * Tenderness or pain with redness and/swelling in the calf(s) of your leg [facility] for a BP check?01/26/24 Call with BP greater than or equal to 160/110 2-week visit: discuss infant feeding concerns, review control options and screen for anxiety/depression. 6-week visit for an annual exam. consultation services are available to all mothers and babies for the first year after delivery.? To make an appointment, please call [phone]. Activity Level: Activity as Tolerated Discharge Diet: Regular Follow Up Appointments: [facility] [Provider Group] Forms: [employer] Info Instructions
[2024-01-22 07:53] LABS: Basophils Absolute Auto 0.02 K/uL (0.00-0.30); Basophils Percent Auto 0.2 % (0.0-3.0); Eosinophils Absolute Auto 0.24 K/uL (0.00-0.50); Eosinophils Percent Auto 2.3 % (0.0-7.0); Hematocrit 36.8 % (33.0-51.0); Hemoglobin* 11.9 gm/dL (12.0-16.0); Immature Granulocytes Abs Auto 0.07 K/uL (0.00-0.30); Immature Granulocytes Pct Auto 0.7 %; Lymphocytes Absolute Auto 2.52 K/uL (0.90-2.90); Lymphocytes Percent Auto 23.8 % (20-44); Mean Corpuscular HGB Conc 32 gm/dL (32-36); Mean Corpuscular Hemoglobin 27 pg (26-34); Mean Corpuscular Volume 84 fL (80-100); Monocytes Percent Auto 6.3 % (0.0-11.0); Neutrophils Absolute Auto 7.09 K/uL (1.7-7.0); Neutrophils Percent Auto 66.7 % (42.0-72.0); Platelet Count* 198 K/uL (140-440); White Blood Count* 10.61 K/uL (4.50-11.00)
[2024-01-22 07:58] LABS: Slide Review Reflex No
[2024-01-22 08:08] LABS: Creatinine* 0.6 mg/dL (0.5-1.5); Est. Creatinine Clearance* 149.62; Estimated Glomerular Filt Rate 131 ml/min
[2024-01-22 08:09] LABS: Alanine Aminotransferase* 21 U/L (4-35); Aspartate Amino Transferase* 35 U/L (12-35); Blood Urea Nitrogen* 7 mg/dL (5-24)
[2024-01-22 09:27] VITALS: BP 123/83; PULSE 91; RESP 16; TEMP 36.6; O2SAT 98
[2024-01-22] MEDS: DOCUSATE SODIUM 100 MG CAPSULE PO (09:51)
[2024-01-22 12:36] VITALS: BP 124/83; PULSE 73; RESP 19; TEMP 36.4; O2SAT 95
== END 2024-01-22 14:45 | disposition home or self-care (01) | DRG 807 ==
PROVIDERS: Obstetrics & Gynecology; Admitting Provider Obstetrics & Gynecology; Visit Provider Obstetrics & Gynecology
DX: O13.4 Gestational [pregnancy-induced] hypertension without significant proteinuria, complicating childbirth (principal); Z37.0 Single live birth; O70.0 First degree perineal laceration during delivery; Z3A.37 37 weeks gestation of pregnancy; Z78.9 Other specified health status
CPT/HCPCS: 01967; 36415; 82565; 82570; 84156; 84450; 84460; 84520; 85025; 85027; 86592; 86850; 86900; 86901; 88307; A9270; J0665; J2371; J2795; J7120

== ENCOUNTER 2024-01-28 12:47 | Outpatient (CLI) | payer MEDICAID, SELFPAY ==
--- NOTE | 2024-01-28 15:39 | P.LACCB_ITS ---
Consult Note - Mom Date of Visit Date of visit: 01/28/24 Reason for consultation: Assistance Needed Visit Code: Visit Patient's Information Phone number: [phone] : 1 Para: 1 Allergies Peanut (Legumes) Allergy (Severe, Verified 01/16/24 13:53) Swelling amoxicillin Allergy (Intermediate, Verified 01/16/24 13:53) Hives Penicillins Allergy (Intermediate, Verified 01/16/24 13:53) Hives penicillin V Allergy (Mild, Verified 01/16/24 13:53) Rash Mother's Medical History: Medical History (Updated 01/24/24 @ 00:00 by Background Daemon) Eczema (04/24/09) ?L30.9 - Dermatitis, unspecified (ICD-10) Peanut allergy ?Z91.010 - Allergy to peanuts (ICD-10) GERD (gastroesophageal reflux disease) ?K21.9 - Gastro-esophageal reflux disease without esophagitis (ICD-10) Work Plans: Return to work at 6 weeks, 3 days/week Delivery Information Delivery type: Vaginal Gestational Age: 37 weeks Gestational Weight For Age: AGA Weight: 2.99 kg Discharge Weight: 2.902 kg Percentage weight loss: 2.94 Baby's Information Baby's Age at Visit: 8 days Baby's Provider or Clinic: [facility] Jaundice: Yes (face and chest; bili was trending down at clinic visit 2 days ago) Past Experience Past Experience: No Current Frequency of Day Feedings: every 3 hours Frequency of Night Feedings: every 3.5-4 hours Both Breasts: Yes Suck: strong Latch: comfortable per mom Length of Time: 10m on 1st side, 5-10m on 2nd side Goals: 1 year Pumping Pumping: Yes Quantity Pumped: using a [employer]akaa donny; gets about 1 oz/session Supplementing EBM Supplement: Yes (only 1 time when baby too sleepy to nurse) Formula Supplement: No Baby Elimination Number of Wet Diapers a Day: ea feeding Number of BM a Day: 3-4; firmer for 2 days so mom concerned, not hard but more formed Breast/Nipple Condition Breast Information: Breasts are symmetrical with rounded lower quadrants, intramammary distance is less than 1.5 inches. No erythema. Nipples are supple, everted prior to feeding. Breast Shape: Round Engorgement: No Maternal Nipple Condition - Left: Common Nipple Maternal Nipple Condition - Right: Common Nipple Sore Nipples: No Baby Assessment Skin: Normal and Yellow Tongue/frenulum: Normal/elastic Palate: Average Lips: Relaxed and Symmetrical Jaw Alignment: Symmetrical Mucosa: [place], moist Onsite Observation Pre-Feed weight: 3.122 kg (up 102 gms in 2 days) Post-Feed weight: 3.202 kg Milk Transferred (mL): 80 (after nursing 7 min on 1st side and 5 min on 2nd side) Position: Cross cradle Attachment/latch-on achieved: Easily Suck pattern: Suck burst and normal rest Swallow: Audible, consistent and Gulping Behavior following feed: Alert, content Pre-Nursing Left Nipple: Within Normal Limits Pre-Nursing Right Nipple: Within Normal Limits Post-Nursing Left Nipple: Within Normal Limits Post-Nursing Right Nipple: Within Normal Limits Assessments/Interventions Assessments/Interventions: Lizzie nursed well during clinic observation Initially has a shallow latch, but easily adjusted to a wider, deeper latch with flanged lips Lizzie nursed 7 min on the first side and then comes off independently, latches easily to the 2nd breast and releases after 5 minutes Content after feeding Milk transfer is excellent Lizzie followed up feeding with a large yellow, seedy stool typical of breastfed infants; no form to it and no small laura like mom has seen discussed mom could add fiber to her diet (in particular raisin bran) as this sometimes helps babies who have thicker stools Education provided: Asymmetric latch technique for wide/deep latch to increase milk, Supply/demand nature of milk supply, Pumping for milk management and Milk collection, storage Feeding Plan: Continue current feeding plan; okay to let baby go longer between feeds at night if mom is comfortable given weight gain from discharge as well as from clinic visit 2 days ago. ok for mom to wake baby if needed for feeding for her own comfort as well Discussed pumping in the morning for a freezer supply if desired, adding bottles at 3-4 weeks since mom returns to work at 6 weeks Discussed bottle volumes expected for when she returns to work Pumping questions answered for return to work as well Follow-Up Suggested follow up: Appointment as needed Time Spent Time spent with patient (min): 60 (reviewing EMR and face to face time with mom and baby) Meds Home Medications and Allergies Home Medications ?Medication ?Instructions ?Recorded ?Confirmed ?Type epinephrine 0.3 mg/0.3 mL 0.3 ml IM PRN anaphylaxis 05/24/23 01/20/24 History injection, auto-injector docosahexaenoic acid 200 mg 200 mg PO DAILY 07/08/23 01/20/24 History capsule ( DHA) Allergies Allergy/AdvReac Type Severity Reaction Status Date / Time Peanut (Legumes) Allergy Severe Swelling Verified 01/16/24 13:53 amoxicillin Allergy Intermediate Hives Verified 01/16/24 13:53 Penicillins Allergy Intermediate Hives Verified 01/16/24 13:53 penicillin V Allergy Mild Rash Verified 01/16/24 13:53
== END 2024-01-28 12:48 | disposition home or self-care (01) ==
LOC: OB LAC 12:48
PROVIDERS: Visit Provider Obstetrics & Gynecology
DX: Z39.1 Encounter for care and examination of lactating mother (principal)
CPT/HCPCS: G0463

== ENCOUNTER 2024-03-02 10:37 | Outpatient (CLI) | payer MEDICAID, SELFPAY | END 2024-03-02 10:38 | disposition home or self-care (01) | LOC: NFLDREF 10:38 | PROVIDERS: Visit Provider Physician Assistant | DX: Z39.2 Encounter for routine postpartum follow-up (principal); Z12.4 Encounter for screening for malignant neoplasm of cervix | CPT/HCPCS: 87624; 87625; 88141; 88142 ==

== ENCOUNTER 2024-10-29 08:58 | Outpatient (CLI) | payer MEDICAID, SELFPAY ==
--- NOTE | 2024-10-29 09:15 | CRLHL7_ITS ---
For Patients: As a result of the Century Cures Act, medical imaging exams and procedure reports are released immediately into your electronic medical record. You may view this report before your referring provider. If you have questions, please contact your health care provider. OB ULTRASOUND INDICATION: Dating. TECHNIQUE: Real time grayscale imaging of the fetus was performed. Transabdominal. LMP: Patient , unsure of LMP. Previous US: No. CRL: 3.0 cm. 9 w 6 d. YAMILET: 05/28/2025. FHR: 161 BPM. Gestational sac: 4.2 cm. Appears within normal limits. Yolk sac: 4.8 mm. Appears within normal limits. Right ovary: Within normal limits. 3.2 x 2.3 x 2.8 cm. Left ovary: N/V. IMPRESSION: Single living intrauterine measuring 9 weeks 6 days and sonographic due date 05/28/2025. Santana Ventura M.D. Diagnostic Radiologist [email or web address] ELSIE/ly modi/Dictated by: Santana Ventura MD @ 10/31/2024 9:18:00 PM (Electronically Signed)
== END 2024-10-29 08:59 | disposition home or self-care (01) ==
LOC: US 08:59
PROVIDERS: Visit Provider Advanced Practice Midwife
DX: Z34.91 Encounter for supervision of normal pregnancy, unspecified, first trimester (principal); Z3A.09 9 weeks gestation of pregnancy
CPT/HCPCS: 76801

== ENCOUNTER 2024-10-29 09:46 | Outpatient (CLI) | payer MEDICAID, SELFPAY | END 2024-10-29 09:47 | disposition home or self-care (01) | PROVIDERS: Visit Provider Advanced Practice Midwife | DX: Z34.91 Encounter for supervision of normal pregnancy, unspecified, first trimester (principal); Z3A.11 11 weeks gestation of pregnancy | CPT/HCPCS: 82565; 82570; 83020; 83021; 84156; 84450; 84460; 84520; 85660; 86592; 86703; 86762; 86787; 86803; 87086 ==

== ENCOUNTER 2024-12-30 09:04 | Outpatient (CLI) | payer MEDICAID, SELFPAY ==
--- NOTE | 2024-12-30 09:15 | CRLHL7_ITS ---
For Patients: As a result of the Century Cures Act, medical imaging exams and procedure reports are released immediately into your electronic medical record. You may view this report before your referring provider. If you have questions, please contact your health care provider. OB ULTRASOUND GREATER THAN 14 WEEKS 12/30/2024 CLINICAL HISTORY: Supervision of normal . COMPARISON: 10/29/2024. TECHNIQUE: Real time pike scale imaging of the fetus was performed. Transabdominal imaging performed. FINDINGS: YAMILET by US: 05/28/2025. GA: 18 weeks 5 days. position: Vertex. Cervix: Visualized. Technique: TA. Length of closed cervix: 4.0 cm. Placenta/Cord: Anterior. Technique: TA. Placenta tip to internal os: 3.8 cm. Umbilical Cord: 3 vessel cord. Placental Insertion: Eccentric > 2 cm from tip. Amniotic Fluid: 4.2 cm SDP. OBSERVED STRUCTURES Calvarium/Spine: Cerebellum Cisterna Magna Nuchal Fold Lateral Ventricle CSP Choroid Plexus Abdomen: Stomach Abd Cord Insert Urinary Bladder Kidneys Diaphragm Face: Orbital view Limbs: Upper Extremities Lower Extremities Hands Feet Vascular: Not seen IMPRESSION: 1. Concordance of clinical and sonographic dating. 2. Incomplete visualization of the profile, nose, lips and heart. Short-term follow-up is recommended. Remainder of the anatomic survey is normal. 3. Eccentric placental cord insertion. 2 cm placental bazan also present which is also not near the cord insert. Santana Ventura M.D. Diagnostic Radiologist [email or web address] Transcribed: 11:21 am DW/Dictated by: Santana Ventura MD @ 12/30/2024 10:39:00 AM (Electronically Signed)
== END 2024-12-30 09:05 | disposition home or self-care (01) ==
LOC: US 09:04
PROVIDERS: Visit Provider Obstetrics & Gynecology
DX: O13.2 Gestational [pregnancy-induced] hypertension without significant proteinuria, second trimester (principal); Z3A.18 18 weeks gestation of pregnancy
CPT/HCPCS: 76805

== ENCOUNTER 2025-01-26 08:00 | Outpatient (CLI) | payer MEDICAID, SELFPAY ==
--- NOTE | 2025-01-26 08:15 | CRLHL7_ITS ---
For Patients: As a result of the Century Cures Act, medical imaging exams and procedure reports are released immediately into your electronic medical record. You may view this report before your referring provider. If you have questions, please contact your health care provider. OB ULTRASOUND YAMILET by US: 05/28/2024. GA: 22 w, 4 d. Single. Comparison: FAS 12/30/2024. INDICATION: Incomplete views on FAS, profile, nose/lips, and heart. TECHNIQUE: Real time grayscale imaging of the fetus was performed. Transabdominal. CERVIX: Not visualized. POSITIONING: Breech. AMNIOTIC FLUID: 4.0 cm. SDP (N: greater than 2 x 1 cm) PLACENTA: Technique: Transabdominal. PLACENTA POSITION: Anterior. DOPPLER: heart rate: 154 bpm. IMPRESSION: 1. Normal four chamber heart, RVOT, LVOT, three-vessel trachea view, three-vessel view, profile, nose and lips. 2. Incidental placental bazan is present which measures 1.9 x 2.8 x 1.2 cm. Santana Ventura M.D. Diagnostic Radiologist [email or web address] ELSIE/ly modi/Dictated by: Santana Ventura MD @ 01/26/2025 9:01:00 AM (Electronically Signed)
== END 2025-01-26 08:01 | disposition home or self-care (01) ==
LOC: US 08:01
PROVIDERS: Visit Provider Obstetrics & Gynecology
DX: O36.8320 Maternal care for abnormalities of the fetal heart rate or rhythm, second trimester, not applicable or unspecified (principal); O35.AXX0 Maternal care for other (suspected) fetal abnormality and damage, fetal facial anomalies, not applicable or unspecified; Z3A.22 22 weeks gestation of pregnancy
CPT/HCPCS: 76816

== ENCOUNTER 2025-01-26 08:45 | Outpatient (CLI) | payer MEDICAID, SELFPAY | END 2025-01-26 08:46 | disposition home or self-care (01) | LOC: NFLDREF 01-27 19:07 | PROVIDERS: Visit Provider Obstetrics & Gynecology | DX: Z34.92 Encounter for supervision of normal pregnancy, unspecified, second trimester (principal) | CPT/HCPCS: 86704; 86706; 87340 ==

== ENCOUNTER 2025-03-09 10:16 | Outpatient (CLI) | payer MEDICAID, SELFPAY | END 2025-03-09 10:17 | disposition home or self-care (01) | PROVIDERS: Visit Provider Obstetrics & Gynecology | DX: Z34.92 Encounter for supervision of normal pregnancy, unspecified, second trimester (principal); L65.9 Nonscarring hair loss, unspecified; R10.20 Pelvic and perineal pain unspecified side | CPT/HCPCS: 82306; 84443; 86780; 87086 ==

== ENCOUNTER 2025-03-18 23:37 | Outpatient (CLI) | payer MEDICAID, SELFPAY ==
[2025-03-18 23:51] VITALS: BP 125/80; PULSE 92
[2025-03-19 00:07] VITALS: PULSE 91; RESP 16; TEMP 36.6; O2SAT 98
[2025-03-19 00:13] LABS: Amnisure Rom* Negative
[2025-03-19 00:36] LABS: Appearance Urine Clear (Clear)
[2025-03-19 00:38] LABS: Trichomonas No Trichomonas Seen (None Seen)
--- NOTE | 2025-03-19 00:50 | PC.OBNST ---
NST Note NST Note Start: 03/18/25 23:43 Freq: ONCE Status: Active Protocol: Document 03/19/25 00:49 AML (Rec: 03/19/25 00:50 AML Desktop) NST Note 2 Para (# of births) 1 EDC 05/28/25 Gestational Age In 30 Weeks & 0 Days Weeks & Days Patient Presented Leaking fluid with Complaint(s) of Reactive Yes Appropriate for Yes Gestational Age PAT Tom RN Date 03/19/25 Reactive Yes Appropriate for Yes Gestational Age PAT Martinez RN Date 03/19/25 OB NST charge Yes Complete NST Note Yes via Write Note The provider's electronic signature indicates the NST is reactive/appropriate for gestational age. *Note to provider: If an addendum is required, open the patient's chart and click on the note under the Nurse/Allied Health tab.
== END 2025-03-19 00:44 | disposition home or self-care (01) ==
LOC: OB OUT 23:38 → OB 23:39
PROVIDERS: Visit Provider Obstetrics & Gynecology
DX: O47.03 False labor before 37 completed weeks of gestation, third trimester (principal); Z3A.30 30 weeks gestation of pregnancy
CPT/HCPCS: 59025; 81003; 84112; 87210; G0463